=== PATIENT | female | born 1965 | race Caucasian/White ===

== ENCOUNTER 2021-12-27 09:19 | Emergency (ER) | payer BC, SELFPAY ==
[2021-12-27 09:33] VITALS: BP 152/103; PULSE 86; RESP 16; TEMP 36.7; O2SAT 98
--- NOTE | 2021-12-27 09:35 | ED.SKABFB ---
HPI - Skin/Abscess/Foreign Bdy General Chief complaint: Skin/Abscess/Foreign Body Stated complaint: chest abscess Time Seen by Provider: 12/27/21 09:35 Source: patient Mode of arrival: ambulatory Limitations: no limitations History of Present Illness HPI narrative: 56-year-old female presented for complaint of abscess to the right upper chest. She states it started as a pimple about 3 days ago, since then it has spread, become more red, tender, and firm. She denies active drainage. She has applied Prid to the site with dressing and tegaderm, without any drainage. She denies associated nausea, vomiting, fevers or chills. No other locations of abscesses. Denies history of abscesses. MD complaint: rash Related Data Home Medications Medication Instructions Recorded Confirmed paroxetine HCl 20 mg tablet 20 tablet PO DAILY 12/27/21 12/27/21 Allergies Allergy/AdvReac Type Severity Reaction Status Date / Time anesthesia Allergy Other Uncoded 12/27/21 09:32 Review of Systems Review of Systems: CONSTITUTIONAL: Denies body aches, fever, chills, or sweats. CARDIOVASCULAR: Denies chest pain, palpitations, or edema. RESPIRATORY: Denies cough or dyspnea. GASTROINTESTINAL: Denies abdominal pain, nausea, vomiting, or diarrhea. GENITOURINARY: Denies dysuria or hematuria. SKIN: reports abscess MUSCULOSKELETAL: Denies back pain, joint pain, or myalgia. PMFSH Comments At time of signature, I have reviewed and agree with nursing past medical, surgical, social and family history unless otherwise noted. Please see nursing chart for further information. There is no relevant family history pertinent to the presenting complaint Exam Narrative: GENERAL: Well-appearing, well-nourished, and in no acute distress. ENT: Mucous membranes moist. Oropharynx without edema, erythema or lesions. NECK: Supple. No lymphadenopathy CHEST: Clear to auscultation. No respiratory distress. HEART: Regular rate and rhythm. SKIN: Warm, dry. Right upper chest wall abscess, induration of approx 7cm x5cm, area of fluctuance at center without active drainage, tender with palpation NEURO: Alert and oriented x3. PSYCH: Normal mood and affect Course Course Emergency Course: Patient is aware of diagnosis, understands and agrees to treatment plan. Anticipatory guidance given. Patient agrees to follow-up as directed and is aware of reasons to seek care at the emergency department. Portions of this record may have been created with voice recognition software Level of Care: Express Care Visit Vital Signs Vital signs: Vital Signs Temperature 98.0 F 12/27/21 09:33 Pulse Rate 86 12/27/21 09:33 Respiratory Rate 16 12/27/21 09:33 Blood Pressure 152/103 H 12/27/21 09:33 Pulse Oximetry 98 12/27/21 09:33 Oxygen Delivery Room Air 12/27/21 09:33 Temperature 98.0 F 12/27/21 09:33 Pulse Rate 86 12/27/21 09:33 Respiratory Rate 16 12/27/21 09:33 Blood Pressure 152/103 H 12/27/21 09:33 Pulse Oximetry 98 12/27/21 09:33 Oxygen Delivery Room Air 12/27/21 09:33 Reviewed Procedures Abscess I/D chest: Date of Incision: 12/27/21 Side (if applicable): right Sedation/analgesia: none Local Anesthetic: lidocaine 1% and with epi Amount of anesthesia used (mL): 3 Technique: incised with #11 blade and probed loculations Packing used?: plain I&D Results: Pus Abcess I&D Additional Comments: wound cleansed prior to incision, using 11 blade at the center of fluctuant area, large amount of purulent drainage. pt tolerated well. MDM - Skin/Abscess/Foreign Bdy MDM Narrative Medical decision making narrative: Abscess I&D completed, pt advised on abx and supportive treatment. Instructed patient to go to nearest ER immediately for any worsening symptoms including but not limited to: fever, redness, pain, trouble breathing, or any symptoms concerning to the patient. Differential Diagno
[2021-12-27 09:36] VITALS: BP 152/103; PULSE 86; RESP 16; TEMP 36.7; O2SAT 98
== END 2021-12-27 10:20 | disposition home or self-care (01) ==
PROVIDERS: Emergency Provider Nurse Practitioner Family
DX: L02.213 Cutaneous abscess of chest wall (principal)
CPT/HCPCS: 10061; 87070; 87075; 87205; 99213; G0463

== ENCOUNTER 2024-08-25 09:00 | Emergency (ER) | payer OTHER, SELFPAY ==
[2024-08-25] VITALS (13 sets, daily range): BP systolic 127–197; BP diastolic 58–121; PULSE 85–132; RESP 12–23; TEMP 37.2–37.6; O2SAT 97–100
--- NOTE | ~2024-08-25 | US_ITS ---
US abdomen limited INDICATION: Abnormal gallbladder on CT. PROCEDURE: Realtime right upper abdominal ultrasound. COMPARISON: CT dated 08/25/2024 FINDINGS: The pancreas is normal without focal mass or pancreatic ductal dilation. Liver echotexture is normal without focal mass or intrahepatic biliary dilatation. There is normal directional flow i n the portal vein. There are multiple gallstones. No gallbladder wall thickening or pericholecystic fluid. Common bile duct measures 4 mm. No sonographic Baum's sign. IMPRESSION: 1: Cholelithiasis. Reviewed, dictated and finalized at location B. UMER RELATIONS COMPLAINT CLERK IMPRESSION: 1: Cholelithiasis.
--- NOTE | ~2024-08-25 | XR_ITS ---
Clinical Indication: Altered mental status AP and lateral views of the chest: Comparison: 12/31/2018 Findings: There is mild central congestive change, without evidence of focal consolidation or pleural effusion. Cardiomediastinal silhouette is within normal limits. Bones and soft tissues are unremark able. Impression: Mild central pulmonary venous congestive change. Reviewed, dictated and finalized at location . D SALES ASSOCIATE Impression: Mild central pulmonary venous congestive change.
--- NOTE | ~2024-08-25 | CT_ITS ---
Non-contrast Head CT History: Altered mental status Technique: Axial non-contrast imaging of the brain was performed. Dose reduction technique was used on this scan by utilizing automated exposure control and iterative reconstruction technique. The dose -length product (DLP) was 1059.33 mGy-cm. Findings: There is no evidence of intracranial hemorrhage, mass lesion, or acute infarct. Brain par enchyma appears normal. The ventricles and subarachnoid spaces are normal in size. The calvarium ap pears normal. Left sphenoid sinus disease present. The remaining visualized paranasal sinuses and mas toid air cells are clear. Impression: No intracranial abnormality seen. Left sphenoid sinus disease. Reviewed, dictated and finalized at location . ONAL EHS MANAGER Impression: No intracranial abnormality seen. Left sphenoid sinus disease.
--- NOTE | ~2024-08-25 | XR_ITS ---
EXAMINATION: XR knee RT min 4V DATE: 08/25/2024 10:48 INDICATION: Erythema and sepsis post recent right knee arthroplasty. TECHNIQUE: AP, crosstable lateral and 2 oblique views of the right knee were obtained. COMPARISON: None. FINDINGS: Right total knee arthroplasty without patellar resurfacing which appears well seated in shanell r-anatomic alignment. No fracture. Small amount of likely residual postoperative intramedullary gas i n the distal femur and proximal tibia. Sagittal oriented anterior skin fanny with underlying soft t issue swelling. Moderate-sized right knee joint effusion. IMPRESSION: 1. Changes consistent with recent right total knee arthroplasty without other acute osseous abnormali ty. 2. Moderate-sized right knee joint effusion. Reviewed, dictated and finalized at location A. TACKER IMPRESSION: 1. Changes consistent with recent right total knee arthroplasty without other a cute osseous abnormality. 2. Moderate-sized right knee joint effusion.
--- NOTE | ~2024-08-25 | CT_ITS ---
EXAMINATION: CT chest abdomen pelvis w con DATE: 08/25/2024 12:06 INDICATION: Sepsis. TECHNIQUE: Computed tomography (CT) of the chest, abdomen, and pelvis was performed with 100 mL Omnip aque-350 intravenous contrast. Automated exposure control and iterative reconstruction technique were employed. The dose-length product was 1279.29 mGy-cm. COMPARISON: None FINDINGS: CHEST CT: Mosaic attenuation in the dependent lungs with mild volume loss in the bilateral lower lobes consiste nt with atelectasis likely related to incomplete inspiratory effort with subsegmental regions of more lucent air trapping related to small airway disease. No pneumonia, pulmonary edema or pleural effusi on. Heart size is normal. No pericardial effusion. Thoracic aorta is normal in caliber with no dissec tion. No pathologically enlarged thoracic lymphadenopathy. Moderate-sized sliding-type hiatal hernia. Mild lower thoracic spondylosis. ABDOMEN/PELVIS CT: Gallbladder is distended to 5.2 cm but without evident wall thickening or pericholecystic inflammator y stranding to suggest acute cholecystitis. Liver, spleen, pancreas, bilateral adrenal glands and lef t kidney are normal. 8 mm cyst at the lower pole of the right kidney. Adjacent inflammatory stranding to suggest diverticulitis. No bowel obstruction. The appendix is not visualized. No pericecal inflam matory change to suggest acute appendicitis. Arriola catheter within the decompressed bladder. Antevert ed uterus and bilateral ovaries are unremarkable. No free intraperitoneal gas or fluid. No pathologic ally enlarged abdominal or pelvic lymphadenopathy. Very small fat-containing umbilical hernia. Modera te severe disc height loss at L5-S1. Otherwise mild lumbar spondylosis. IMPRESSION: 1. No acute cardiopulmonary disease. 2. Gallbladder is distended to 5.2 cm with suggestion of sludge and sludge or gallstones but without evident wall thickening or pericholecystic inflammatory stranding to more specifically suggest acute cholecystitis. Correlate for Baum sign and could consider further evaluation with right upper quadr ant ultrasound or HIDA scan. 3. Moderate-sized sliding-type hiatal hernia. 4. Diverticulosis. Reviewed, dictated and finalized at location A. IFIED PERFORMANCE TECHNOLOGIST IMPRESSION: 1. No acute cardiopulmonary disease. 2. Gallbladder is distended to 5.2 cm with suggestion of sludge and sludge or g allstones but without evident wall thickening or pericholecystic inflammatory s tranding to more specifically suggest acute cholecystitis. Correlate for Baum sign and could consider further evaluation with right upper quadrant ultrasoun d or HIDA scan. 3. Moderate-sized sliding-type hiatal hernia. 4. Diverticulosis.
--- NOTE | 2024-08-25 09:11 | ECG_ITS ---
Test Date: 2024-08-25 09:21:38 Measurements Intervals [place] Rate: 117 P: 14 MS: 112 QRS: -23 QRSD: 88 T: 48 QT: 316 QTc: 442 Interpretive Statements SINUS TACHYCARDIA LEFT VENTRICULAR HYPERTROPHY MINIMAL Q WAVES- HIGH LATERAL LEADS BASELINE WANDER- V6 ABNORMAL ECG No previous ECG available for comparison Electronically Signed On 08-25-2024 09:48:11 [employer] by Rogers Grady D.O.
[2024-08-25 09:27] LABS: Basophils Absolute Auto 0.1 K/mm3 (0.0-0.1); Eosinophils Absolute Auto 0.1 K/mm3 (0-0.3); Eosinophils Percent Auto 1.3 % (0-4.4); Hematocrit 41.2 % (37.0-47.0); Hemoglobin 13.5 g/dL (12.0-15.0); Immature Granulocyte Absolute 0.02 K/mm3 (0.00-0.031); Immature Granulocyte Percent A 0.2 % (0-0.5); Lymphocytes Absolute Auto 1.02 K/mm3 (0.9-3.2); Lymphocytes Percent Auto 12.2 % (18.3-44.2); Mean Corpuscular HGB Conc 32.8 g/dl (32-36); Mean Corpuscular Hemoglobin 28.8 pg (26-34); Mean Platelet Volume 8.8 fl (7.4-10.4); Monocytes Absolute Auto 0.6 K/mm3 (0.1-0.6); Monocytes Percent Auto 6.7 % (2.6-8.5); Neutrophils Absolute Auto 6.6 K/mm3 (1.3-6.7); Neutrophils Percent Auto 78.6 % (45.5-73.1); Platelet Count Result 513 k/mm3 (150-375); Red Blood Count 4.68 M/mm3 (4.2-5.4); Red Cell Distribution Width 13.7 % (11.5-14.5); White Blood Count 8.4 K/mm3 (4.5-10.0)
--- NOTE | 2024-08-25 09:30 | ED_ITS ---
HPI - General Adult General Chief complaint: Recheck/Abnormal Lab/Rx <MACKENZIE Holcomb Last Filed: 08/25/24 19:39> Stated complaint: post surgery issues <MACKENZIE Holcomb Last Filed: 08/25/24 19:39> Time Seen by Provider: 08/25/24 09:01 <MACKENZIE Holcomb Last Filed: 08/25/24 19:39> Source: patient and family <MACKENZIE Holcomb Last Filed: 08/25/24 19:39> Mode of arrival: EMS <MACKENZIE Holcomb Last Filed: 08/25/24 19:39> Limitations: clinical condition <MACKENZIE Hlocomb Last Filed: 08/25/24 19:39> History of Present Illness HPI narrative: Patient is a 59-year-old female who presents the ED via EMS with report of altered mental status. at bedside assisted in providing information. Reports patient underwent right knee replacement at [facility] on Saturday. Performed by Dr. Abhinav Polo. States patient has been increasingly altered and confused since Saturday night. Reports hallucinations. Reports R knee has been warm and painful. Reports decreased urine output since midnight. reports he did count her oxycodone and she has not been taking more than prescribed. Last dose was at 4:00 a.m. this morning. denies N/V. < MACKENZIE Holcomb Last Filed: 08/25/24 19:39> Related Data Home medications: Home Medications ?Medication ?Instructions ?Recorded ?Confirmed ?Last Taken ?Type paroxetine HCl 20 mg tablet 20 tablet PO DAILY 12/27/21 12/27/21 Unknown History <MACKENZIE Holcomb Last Filed: 08/25/24 19:39> Allergies/adverse reactions: Allergies Allergy/AdvReac Type Severity Reaction Status Date / Time anesthesia Allergy Other Uncoded 08/25/24 09:16 <MACKENZIE Holcomb Last Filed: 08/25/24 19:39> Review of Systems 2 Review of Systems: All systems reviewed & are unremarkable except as noted in HPI. <Jeannie Delvalle PA-C - Last Filed: 08/25/24 19:39> All systems reviewed & are unremarkable except as noted in HPI and below < Jeannie Delvalle PA-C - Last Filed: 08/25/24 19:39> [facility] Surgical History Surgical History: Surgical History Status post right knee replacement <Jeannie Delvalle PA-C - Last Filed: 08/25/24 19:39> Exam 2 Narrative: GENERAL: Mildly ill appearing, obese with BMI of 34.8, borderline agitated. HEAD: Normocephalic, atraumatic. ENT: MMs are severely dry. Dried crusted material around lips. RESPIRATORY: Airway patent, respirations nonlabored but tachypneic. Clear to auscultation bilaterally, no rales, rhonchi, wheezing. CARDIOVASCULAR: Tachycardic with regular rhythm without murmurs, rubs, or gallops. ABDOMINAL: Abdomen is somewhat distended, difficult to determine tenderness d/t AMS. Normoactive BS. MUSCULOSKELETAL: No gross deformities. Limited range of motion of right lower extremity due to pain/surgery. Diffuse swelling throughout R knee with ecchymosis present, extending down RLE, in various stages of healing. Mild warmth and erythema present throughout R knee. Midline bandage in place w/o evidence of drainage. SKIN: Warm, dry, normal color. NEURO: Alert, answers some questions but very confused. Repeatedly stating Oh here we go again, is it supposed to hurt so bad, I will get over this bed railing. Not appropriate to conversation. Follows some commands. No ataxic movements. Able to move all extremities. No appreciable focal deficits. PSYCHIATRIC: Agitated, confused. <Jeannie Delvalle PA-C - Last Filed: 08/25/24 19:39> Course SUSTAINABILITY EXECUTIVE DIRECTOR/PA Physician Supervision I agree with midlevel documentation; I performed the medical decision making component of this evaluation. 59-year-old female with recent orthopedic surgery presents here with altered mental status, essentially benign workup otherwise here, will be transferred to the hospital she had her recent surgery at. Currently improved mental status. < Jocelyn Taylor MD - Last Filed: 08/25/24 14:42> Vital Signs Vital signs: Vital Signs Temperature 99.6 F 08/25/24 09:11 Pulse Rate 128 H 08/25/24 09:11 Respiratory Rate 18 08/25/24 09:11 Blood Pressure 197/96 H 08/25/24 09:11 Pulse Oximetry 98 08/25/24 09:11 Oxygen Delivery Room Air 08/25/24 09:11 Temperature 99.3 F 08/25/24 14:31 Pulse Rate 87 08/25/24 14:31 Respiratory Rate 20 08/25/24 14:31 Blood Pressure 130/72 08/25/24 14:31 Pulse Oximetry 99 08/25/24 14:31 Oxygen Delivery Room Air 08/25/24 09:11 <Jeannie Delvalle PA-C - Last Filed: 08/25/24 19:39> Vital Signs Temperature 99.6 F 08/25/24 09:11 Pulse Rate 128 H 08/25/24 09:11 Respiratory Rate 18 08/25/24 09:11 Blood Pressure 197/96 H 08/25/24 09:11 Pulse Oximetry 98 08/25/24 09:11 Oxygen Delivery Room Air 08/25/24 09:11 Temperature 99.3 F 08/25/24 14:31 Pulse Rate 87 08/25/24 14:31 Respiratory Rate 20 08/25/24 14:31 Blood Pressure 130/72 08/25/24 14:31 Pulse Oximetry 99 08/25/24 14:31 Oxygen Delivery Room Air 08/25/24 09:11 <Jocelyn Taylor MD - Last Filed: 08/25/24 14:42> Medical Decision Making MDM Narrative Medical decision making narrative: Patient presented to ED status post recent right knee replacement on Saturday, altered mental status over the past couple of days. Patient hypertensive, tachycardic, borderline febrile upon arrival. Able to answer some orientation questions, but is definitely confused, repeating phrases over and over. No appreciable focal neurologic deficits on exam. Right knee is diffusely swollen with ecchymosis, some warmth and erythema. No drainage. Sepsis workup was initiated. 30cc/kg fluid bolus ordered. There was report of decreased urine output since around midnight this morning. Bladder scan upon arrival revealed greater than 600 mL of urine. When asked if patient needed to urinate, she stated she was trying as hard as she could. Will place Arriola catheter. EKG with sinus tachycardia, nonspecific ST changes. CBC without leukocytosis. White blood cell count is 8.4. H and H is stable. Platelets are 513. CMP with anion gap of 17. Normal bicarb. Blood glucose within normal range. Stable kidney function. Lactic acid is elevated to 2.2. Fluids are ongoing. Mild elevation of total bilirubin to 1.5. Otherwise normal LFTs. No records to compare to. No focal right upper quadrant tenderness on exam. Inflammatory markers are mildly elevated. CRP is 5. ESR 49. Procal 0.1. CK is mildly elevated to 326. Fluids are ongoing. UA with 3+ ketones, but does not appear infectious. Viral swabs are negative. CT brain unremarkable. CXR with mild pulm congestive changes. Patient does not appear fluid overloaded. BNP WNL. XR R knee showing post operative changes, no acute osseous abnormality, moderate size right knee joint effusion. CT chest/abd/pelvis with possible GB etiology, otherwise non-reevealing. Patient w/o any focal RUQ tenderness on exam. RUQ US with cholelithiasis, no evidence of cholecystitis. Low suspicion for this. Unclear etiology of AMS... polypharmacy vs sepsis vs septic joint vs post operative infection vs acute urinary retention vs severe dehydration vs neurologic etiology. Patient given 3L of fluid in the ED. On reeval, she is more calmer, alert, appropriate, able to converse. Much more to baseline. Patient will be admitted for further evaluation of AMS, but will discuss with [facility] given recent hospitalization/surgery there. Discussed case with Dr. Davis, hospitalist @ [facility], accepted patient for admission/transfer. Patient and family are in agreement with plan and transfer. Awaiting bed placement. Patient received bed. Transport being arranged. <Jeannie Delvalle PA-C - Last Filed: 08/25/24 19:39> Medical Records Medical records reviewed: Yes I reviewed the external patient's medical records. <Jeannie Delvalle PA-C - Last Filed: 08/25/24 19:39> Vital Signs Vital Signs: Vital Signs Temperature 99.6 F 08/25/24 09:11 Pulse Rate 128 H 08/25/24 09:11 Respiratory Rate 18 08/25/24 09:11 Blood Pressure 197/96 H 08/25/24 09:11 Pulse Oximetry 98 08/25/24 09:11 Oxygen Delivery Room Air 08/25/24 09:11 Temperature 99.3 F 08/25/24 14:31 Pulse Rate 87 08/25/24 14:31 Respiratory Rate 20 08/25/24 14:31 Blood Pressure 130/72 08/25/24 14:31 Pulse Oximetry 99 08/25/24 14:31 Oxygen Delivery Room Air 08/25/24 09:11 <Jeannie Delvalle PA-C - Last Filed: 08/25/24 19:39> Vital Signs Temperature 99.6 F 08/25/24 09:11 Pulse Rate 128 H 08/25/24 09:11 Respiratory Rate 18 08/25/24 09:11 Blood Pressure 197/96 H 08/25/24 09:11 Pulse Oximetry 98 08/25/24 09:11 Oxygen Delivery Room Air 08/25/24 09:11 Temperature 99.3 F 08/25/24 14:31 Pulse Rate 87 08/25/24 14:31 Respiratory Rate 20 08/25/24 14:31 Blood Pressure 130/72 08/25/24 14:31 Pulse Oximetry 99 08/25/24 14:31 Oxygen Delivery Room Air 08/25/24 09:11 <Jocelyn Taylor MD - Last Filed: 08/25/24 14:42> Lab Data Lab results reviewed: Yes I reviewed the patient's lab results. <Jeannie Delvalle PA-C - Last Filed: 08/25/24 19:39> Result diagrams: 08/25/24 09:22 08/25/24 09:22 <MACKENZIE Holcomb Last Filed: 08/25/24 19:39> Labs: Lab Results 08/25/24 08/25/24 08/25/24 Range/Units 09:21 09:22 09:25 WBC 8.4 (4.5-10.0) K/mm3 RBC 4.68 (4.2-5.4) M/mm3 Hgb 13.5 (12.0-15.0) g/dL Hct 41.2 (37.0-47.0) % MCV 88.0 (80-100) fl MCH 28.8 (26-34) pg MCHC 32.8 (32-36) g/dl RDW 13.7 (11.5-14.5) % Plt Count 513 H (150-375) k/mm3 MPV 8.8 (7.4-10.4) fl Immature Gran % (Auto) 0.2 (0-0.5) % Neut % (Auto) 78.6 H (45.5-73.1) % Lymph % (Auto) 12.2 L (18.3-44.2) % [place] % (Auto) 6.7 (2.6-8.5) % Eos % (Auto) 1.3 (0-4.4) % Baso % (Auto) 1.0 (0.2-1.2) % Lymph # (Auto) 1.02 (0.9-3.2) K/mm3 [place] # (Auto) 0.6 (0.1-0.6) K/mm3 Eos # (Auto) 0.1 (0-0.3) K/mm3 Baso # (Auto) 0.1 (0.0-0.1) K/mm3 Abs Immat Gran (auto) 0.02 (0.00-0.031) K/mm3 Absolute Neuts (auto) 6.6 (1.3-6.7) K/mm3 Absolute Nucleated RBC 0.000 (0.0-0.012) K/mm3 Nucleated RBC % 0.0 (0.0-0.2) % ESR (0-20) mm/hr PT 12.9 (11.1-14.7) Seconds INR 0.9 APTT 23.2 (22.3-36.8) Seconds Sodium 142 (137-145) mmol/L Potassium 3.5 (3.4-5.0) mmol/L Chloride 100 (98-107) mmol/L Carbon Dioxide 25 (22-30) mmol/L Anion Gap 17 H (4-12) mmol/L BUN 10 (7-17) mg/dL Creatinine 0.51 L (0.7-1.0) mg/dL Estim Creat Clear Calc 118 ml/min Estimated GFR > 60 (59 - ) Glucose 122 H (65-110) mg/dL Lactic Acid 2.2 H (0.7-2.0) mmol/L Calcium 9.8 (8.4-10.2) mg/dL Total Bilirubin 1.5 H (0.2-1.3) mg/dL AST 28 (14-36) U/L ALT 22 (6-35) U/L Alkaline Phosphatase 95 (38-126) U/L Total Creatine Kinase 326 H (30-135) U/L C-Reactive Protein 5.0 H (<1.0) mg/dL NT-Pro-B Natriuret Pep 88 (19.9-100) pg/mL Total Protein 8.0 (6.3-8.2) g/dL Albumin 4.3 (3.5-5.1) g/dL Procalcitonin 0.1 ng/mL Urine Color (Yellow) Urine Appearance (Clear) Urine pH (5.0-9.0) Ur Specific [place] (1.001-1.035) Urine Protein (Negative) mg/dL Urine Glucose (UA) (Negative) mg/dL Urine Ketones (Negative) mg/dL Ur Blood (Man) (Negative) Urine Nitrate (Negative) Urine Bilirubin (Negative) Urine Urobilinogen (<2.0) mg/dL Leukocyte Esterase Rfl (Negative) ARYA/UL POC Urine HCG, Qual (Negative) Influenza A (RT-PCR) (Negative) Influenza B (RT-PCR) (Negative) RSV (RT-PCR) (Negative) SARS-CoV-2 RNA (RT-PCR) (Negative) 08/25/24 08/25/24 08/25/24 Range/Units 09:49 09:51 11:23 WBC (4.5-10.0) K/mm3 RBC (4.2-5.4) M/mm3 Hgb (12.0-15.0) g/dL Hct (37.0-47.0) % MCV (80-100) fl MCH (26-34) pg MCHC (32-36) g/dl RDW (11.5-14.5) % Plt Count (150-375) k/mm3 MPV (7.4-10.4) fl Immature Gran % (Auto) (0-0.5) % Neut % (Auto) (45.5-73.1) % Lymph % (Auto) (18.3-44.2) % [place] % (Auto) (2.6-8.5) % Eos % (Auto) (0-4.4) % Baso % (Auto) (0.2-1.2) % Lymph # (Auto) (0.9-3.2) K/mm3 [place] # (Auto) (0.1-0.6) K/mm3 Eos # (Auto) (0-0.3) K/mm3 Baso # (Auto) (0.0-0.1) K/mm3 Abs Immat Gran (auto) (0.00-0.031) K/mm3 Absolute Neuts (auto) (1.3-6.7) K/mm3 Absolute Nucleated RBC (0.0-0.012) K/mm3 Nucleated RBC % (0.0-0.2) % ESR 49 H (0-20) mm/hr PT (11.1-14.7) Seconds INR APTT (22.3-36.8) Seconds Sodium (137-145) mmol/L Potassium (3.4-5.0) mmol/L Chloride (98-107) mmol/L Carbon Dioxide (22-30) mmol/L Anion Gap (4-12) mmol/L BUN (7-17) mg/dL Creatinine (0.7-1.0) mg/dL Estim Creat Clear Calc ml/min Estimated GFR (59 - ) Glucose (65-110) mg/dL Lactic Acid (0.7-2.0) mmol/L Calcium (8.4-10.2) mg/dL Total Bilirubin (0.2-1.3) mg/dL AST (14-36) U/L ALT (6-35) U/L Alkaline Phosphatase (38-126) U/L Total Creatine Kinase (30-135) U/L C-Reactive Protein (<1.0) mg/dL NT-Pro-B Natriuret Pep (19.9-100) pg/mL Total Protein (6.3-8.2) g/dL Albumin (3.5-5.1) g/dL Procalcitonin ng/mL Urine Color Yellow (Yellow) Urine Appearance Clear (Clear) Urine pH 6.5 (5.0-9.0) Ur Specific [place] 1.013 (1.001-1.035) Urine Protein Negative (Negative) mg/dL Urine Glucose (UA) Negative (Negative) mg/dL Urine Ketones 3+ H (Negative) mg/dL Ur Blood (Man) Negative (Negative) Urine Nitrate Negative (Negative) Urine Bilirubin Negative (Negative) Urine Urobilinogen 1.0 (<2.0) mg/dL Leukocyte Esterase Rfl Negative (Negative) ARYA/UL POC Urine HCG, Qual Negative (Negative) Influenza A (RT-PCR) Negative (Negative) Influenza B (RT-PCR) Negative (Negative) RSV (RT-PCR) Negative (Negative) SARS-CoV-2 RNA (RT-PCR) Negative (Negative) 08/25/24 Range/Units 13:12 WBC (4.5-10.0) K/mm3 RBC (4.2-5.4) M/mm3 Hgb (12.0-15.0) g/dL Hct (37.0-47.0) % MCV (80-100) fl MCH (26-34) pg MCHC (32-36) g/dl RDW (11.5-14.5) % Plt Count (150-375) k/mm3 MPV (7.4-10.4) fl Immature Gran % (Auto) (0-0.5) % Neut % (Auto) (45.5-73.1) % Lymph % (Auto) (18.3-44.2) % [place] % (Auto) (2.6-8.5) % Eos % (Auto) (0-4.4) % Baso % (Auto) (0.2-1.2) % Lymph # (Auto) (0.9-3.2) K/mm3 [place] # (Auto) (0.1-0.6) K/mm3 Eos # (Auto) (0-0.3) K/mm3 Baso # (Auto) (0.0-0.1) K/mm3 Abs Immat Gran (auto) (0.00-0.031) K/mm3 Absolute Neuts (auto) (1.3-6.7) K/mm3 Absolute Nucleated RBC (0.0-0.012) K/mm3 Nucleated RBC % (0.0-0.2) % ESR (0-20) mm/hr PT (11.1-14.7) Seconds INR APTT (22.3-36.8) Seconds Sodium (137-145) mmol/L Potassium (3.4-5.0) mmol/L Chloride (98-107) mmol/L Carbon Dioxide (22-30) mmol/L Anion Gap (4-12) mmol/L BUN (7-17) mg/dL Creatinine (0.7-1.0) mg/dL Estim Creat Clear Calc ml/min Estimated GFR (59 - ) Glucose (65-110) mg/dL Lactic Acid 0.9 (0.7-2.0) mmol/L Calcium (8.4-10.2) mg/dL Total Bilirubin (0.2-1.3) mg/dL AST (14-36) U/L ALT (6-35) U/L Alkaline Phosphatase (38-126) U/L Total Creatine Kinase (30-135) U/L C-Reactive Protein (<1.0) mg/dL NT-Pro-B Natriuret Pep (19.9-100) pg/mL Total Protein (6.3-8.2) g/dL Albumin (3.5-5.1) g/dL Procalcitonin ng/mL Urine Color (Yellow) Urine Appearance (Clear) Urine pH (5.0-9.0) Ur Specific [place] (1.001-1.035) Urine Protein (Negative) mg/dL Urine Glucose (UA) (Negative) mg/dL Urine Ketones (Negative) mg/dL Ur Blood (Man) (Negative) Urine Nitrate (Negative) Urine Bilirubin (Negative) Urine Urobilinogen (<2.0) mg/dL Leukocyte Esterase Rfl (Negative) ARYA/UL POC Urine HCG, Qual (Negative) Influenza A (RT-PCR) (Negative) Influenza B (RT-PCR) (Negative) RSV (RT-PCR) (Negative) SARS-CoV-2 RNA (RT-PCR) (Negative) <Jeannie Delvalle PA-C - Last Filed: 08/25/24 19:39> Lab Results 08/25/24 08/25/24 08/25/24 Range/Units 09:21 09:22 09:25 WBC 8.4 (4.5-10.0) K/mm3 RBC 4.68 (4.2-5.4) M/mm3 Hgb 13.5 (12.0-15.0) g/dL Hct 41.2 (37.0-47.0) % MCV 88.0 (80-100) fl MCH 28.8 (26-34) pg MCHC 32.8 (32-36) g/dl RDW 13.7 (11.5-14.5) % Plt Count 513 H (150-375) k/mm3 MPV 8.8 (7.4-10.4) fl Immature Gran % (Auto) 0.2 (0-0.5) % Neut % (Auto) 78.6 H (45.5-73.1) % Lymph % (Auto) 12.2 L (18.3-44.2) % [place] % (Auto) 6.7 (2.6-8.5) % Eos % (Auto) 1.3 (0-4.4) % Baso % (Auto) 1.0 (0.2-1.2) % Lymph # (Auto) 1.02 (0.9-3.2) K/mm3 [place] # (Auto) 0.6 (0.1-0.6) K/mm3 Eos # (Auto) 0.1 (0-0.3) K/mm3 Baso # (Auto) 0.1 (0.0-0.1) K/mm3 Abs Immat Gran (auto) 0.02 (0.00-0.031) K/mm3 Absolute Neuts (auto) 6.6 (1.3-6.7) K/mm3 Absolute Nucleated RBC 0.000 (0.0-0.012) K/mm3 Nucleated RBC % 0.0 (0.0-0.2) % ESR (0-20) mm/hr PT 12.9 (11.1-14.7) Seconds INR 0.9 APTT 23.2 (22.3-36.8) Seconds Sodium 142 (137-145) mmol/L Potassium 3.5 (3.4-5.0) mmol/L Chloride 100 (98-107) mmol/L Carbon Dioxide 25 (22-30) mmol/L Anion Gap 17 H (4-12) mmol/L BUN 10 (7-17) mg/dL Creatinine 0.51 L (0.7-1.0) mg/dL Estim Creat Clear Calc 118 ml/min Estimated GFR > 60 (59 - ) Glucose 122 H (65-110) mg/dL Lactic Acid 2.2 H (0.7-2.0) mmol/L Calcium 9.8 (8.4-10.2) mg/dL Total Bilirubin 1.5 H (0.2-1.3) mg/dL AST 28 (14-36) U/L ALT 22 (6-35) U/L Alkaline Phosphatase 95 (38-126) U/L Total Creatine Kinase 326 H (30-135) U/L C-Reactive Protein 5.0 H (<1.0) mg/dL NT-Pro-B Natriuret Pep 88 (19.9-100) pg/mL Total Protein 8.0 (6.3-8.2) g/dL Albumin 4.3 (3.5-5.1) g/dL Procalcitonin 0.1 ng/mL Urine Color (Yellow) Urine Appearance (Clear) Urine pH (5.0-9.0) Ur Specific [place] (1.001-1.035) Urine Protein (Negative) mg/dL Urine Glucose (UA) (Negative) mg/dL Urine Ketones (Negative) mg/dL Ur Blood (Man) (Negative) Urine Nitrate (Negative) Urine Bilirubin (Negative) Urine Urobilinogen (<2.0) mg/dL Leukocyte Esterase Rfl (Negative) ARYA/UL POC Urine HCG, Qual (Negative) Influenza A (RT-PCR) (Negative) Influenza B (RT-PCR) (Negative) RSV (RT-PCR) (Negative) SARS-CoV-2 RNA (RT-PCR) (Negative) 08/25/24 08/25/24 08/25/24 Range/Units 09:49 09:51 11:23 WBC (4.5-10.0) K/mm3 RBC (4.2-5.4) M/mm3 Hgb (12.0-15.0) g/dL Hct (37.0-47.0) % MCV (80-100) fl MCH (26-34) pg MCHC (32-36) g/dl RDW (11.5-14.5) % Plt Count (150-375) k/mm3 MPV (7.4-10.4) fl Immature Gran % (Auto) (0-0.5) % Neut % (Auto) (45.5-73.1) % Lymph % (Auto) (18.3-44.2) % [place] % (Auto) (2.6-8.5) % Eos % (Auto) (0-4.4) % Baso % (Auto) (0.2-1.2) % Lymph # (Auto) (0.9-3.2) K/mm3 [place] # (Auto) (0.1-0.6) K/mm3 Eos # (Auto) (0-0.3) K/mm3 Baso # (Auto) (0.0-0.1) K/mm3 Abs Immat Gran (auto) (0.00-0.031) K/mm3 Absolute Neuts (auto) (1.3-6.7) K/mm3 Absolute Nucleated RBC (0.0-0.012) K/mm3 Nucleated RBC % (0.0-0.2) % ESR 49 H (0-20) mm/hr PT (11.1-14.7) Seconds INR APTT (22.3-36.8) Seconds Sodium (137-145) mmol/L Potassium (3.4-5.0) mmol/L Chloride (98-107) mmol/L Carbon Dioxide (22-30) mmol/L Anion Gap (4-12) mmol/L BUN (7-17) mg/dL Creatinine (0.7-1.0) mg/dL Estim Creat Clear Calc ml/min Estimated GFR (59 - ) Glucose (65-110) mg/dL Lactic Acid (0.7-2.0) mmol/L Calcium (8.4-10.2) mg/dL Total Bilirubin (0.2-1.3) mg/dL AST (14-36) U/L ALT (6-35) U/L Alkaline Phosphatase (38-126) U/L Total Creatine Kinase (30-135) U/L C-Reactive Protein (<1.0) mg/dL NT-Pro-B Natriuret Pep (19.9-100) pg/mL Total Protein (6.3-8.2) g/dL Albumin (3.5-5.1) g/dL Procalcitonin ng/mL Urine Color Yellow (Yellow) Urine Appearance Clear (Clear) Urine pH 6.5 (5.0-9.0) Ur Specific [place] 1.013 (1.001-1.035) Urine Protein Negative (Negative) mg/dL Urine Glucose (UA) Negative (Negative) mg/dL Urine Ketones 3+ H (Negative) mg/dL Ur Blood (Man) Negative (Negative) Urine Nitrate Negative (Negative) Urine Bilirubin Negative (Negative) Urine Urobilinogen 1.0 (<2.0) mg/dL Leukocyte Esterase Rfl Negative (Negative) ARYA/UL POC Urine HCG, Qual Negative (Negative) Influenza A (RT-PCR) Negative (Negative) Influenza B (RT-PCR) Negative (Negative) RSV (RT-PCR) Negative (Negative) SARS-CoV-2 RNA (RT-PCR) Negative (Negative) 08/25/24 Range/Units 13:12 WBC (4.5-10.0) K/mm3 RBC (4.2-5.4) M/mm3 Hgb (12.0-15.0) g/dL Hct (37.0-47.0) % MCV (80-100) fl MCH (26-34) pg MCHC (32-36) g/dl RDW (11.5-14.5) % Plt Count (150-375) k/mm3 MPV (7.4-10.4) fl Immature Gran % (Auto) (0-0.5) % Neut % (Auto) (45.5-73.1) % Lymph % (Auto) (18.3-44.2) % [place] % (Auto) (2.6-8.5) % Eos % (Auto) (0-4.4) % Baso % (Auto) (0.2-1.2) % Lymph # (Auto) (0.9-3.2) K/mm3 [place] # (Auto) (0.1-0.6) K/mm3 Eos # (Auto) (0-0.3) K/mm3 Baso # (Auto) (0.0-0.1) K/mm3 Abs Immat Gran (auto) (0.00-0.031) K/mm3 Absolute Neuts (auto) (1.3-6.7) K/mm3 Absolute Nucleated RBC (0.0-0.012) K/mm3 Nucleated RBC % (0.0-0.2) % ESR (0-20) mm/hr PT (11.1-14.7) Seconds INR APTT (22.3-36.8) Seconds Sodium (137-145) mmol/L Potassium (3.4-5.0) mmol/L Chloride (98-107) mmol/L Carbon Dioxide (22-30) mmol/L Anion Gap (4-12) mmol/L BUN (7-17) mg/dL Creatinine (0.7-1.0) mg/dL Estim Creat Clear Calc ml/min Estimated GFR (59 - ) Glucose (65-110) mg/dL Lactic Acid 0.9 (0.7-2.0) mmol/L Calcium (8.4-10.2) mg/dL Total Bilirubin (0.2-1.3) mg/dL AST (14-36) U/L ALT (6-35) U/L Alkaline Phosphatase (38-126) U/L Total Creatine Kinase (30-135) U/L C-Reactive Protein (<1.0) mg/dL NT-Pro-B Natriuret Pep (19.9-100) pg/mL Total Protein (6.3-8.2) g/dL Albumin (3.5-5.1) g/dL Procalcitonin ng/mL Urine Color (Yellow) Urine Appearance (Clear) Urine pH (5.0-9.0) Ur Specific [place] (1.001-1.035) Urine Protein (Negative) mg/dL Urine Glucose (UA) (Negative) mg/dL Urine Ketones (Negative) mg/dL Ur Blood (Man) (Negative) Urine Nitrate (Negative) Urine Bilirubin (Negative) Urine Urobilinogen (<2.0) mg/dL Leukocyte Esterase Rfl (Negative) ARYA/UL POC Urine HCG, Qual (Negative) Influenza A (RT-PCR) (Negative) Influenza B (RT-PCR) (Negative) RSV (RT-PCR) (Negative) SARS-CoV-2 RNA (RT-PCR) (Negative) <Jocelyn Taylor MD - Last Filed: 08/25/24 14:42> Imaging Data Attestation: I personally reviewed and interpreted this imaging study as follows: < Jeannie Delvalle PA-C - Last Filed: 08/25/24 19:39> Radiologist's impression: ITS Impressions Head CT 08/25/24 10:30 Impression: No intracranial abnormality seen. Left sphenoid sinus disease. Knee X-Ray 08/25/24 10:50 IMPRESSION: 1. Changes consistent with recent right total knee arthroplasty without other acute osseous abnormality. 2. Moderate-sized right knee joint effusion. Chest X-Ray 08/25/24 11:00 Impression: Mild central pulmonary venous congestive change. Chest/Abdomen/Pelvis CT 08/25/24 12:07 IMPRESSION: 1. No acute cardiopulmonary disease. 2. Gallbladder is distended to 5.2 cm with suggestion of sludge and sludge or gallstones but without evident wall thickening or pericholecystic inflammatory stranding to more specifically suggest acute cholecystitis. Correlate for Baum sign and could consider further evaluation with right upper quadrant ultrasound or HIDA scan. 3. Moderate-sized sliding-type hiatal hernia. 4. Diverticulosis. Abdomen Ultrasound 08/25/24 13:11 IMPRESSION: 1: Cholelithiasis. <Jeannie Delvalle PA-C - Last Filed: 08/25/24 19:39> ECG Data EKG #1: Attestation: I personally reviewed and interpreted this ECG as follows: <Jeannie Delvalle PA-C - Last Filed: 08/25/24 19:39> ECG completion date: 08/25/24 <Jeannie Delvalle PA-C - Last Filed: 08/25/24 19:39> ECG completion time: 09:21 <MACKENZIE Holcomb Last Filed: 08/25/24 19:39> EKG Interpretation: tachycardia (117), sinus rhythm, non-specific ST changes, normal QT and other (short CT) <MACKENZIE Holcomb Last Filed: 08/25/24 19:39> Discharge Plan Discharge Clinical Impression: Acute urinary retention, Dehydration, Elevated CK, Status post right knee replacement, Effusion of right knee joint Altered mental status Qualifiers: Altered mental status type: unspecified Qualified Code(s): R41.82 - Altered mental status, unspecified Encephalopathy Qualifiers: Encephalopathy type: unspecified encephalopathy Qualified Code(s): G93.40 - Encephalopathy, unspecified <Jeannie Delvalle PA-C - Last Filed: 08/25/24 19:39> Patient Disposition: Acute Care Hospital <MACKENZIE Holcomb Last Filed: 08/25/24 19:39> Condition: Stable <MACKENZIE Holcomb Last Filed: 08/25/24 19:39> Patient Language: Bulgarian <MACKENZIE Holcomb Last Filed: 08/25/24 19:39> Prescriptions: No Action paroxetine HCl 20 mg tablet 20 tablet PO DAILY doxycycline hyclate 100 mg tablet 100 mg PO BID 7 Days Qty: 14 0RF <Jeannie Delvalle PA-C - Last Filed: 08/25/24 19:39> Follow-up/Referrals: UNKNOWN,DOCTOR [Primary Care Provider] - <MACKENZIE Holcomb Last Filed: 08/25/24 19:39>
[2024-08-25] MEDS: SODIUM CHLORIDE 0.9% IV 1,000 ML 999 ML IV CONT ×3 (09:40→09:41)
[2024-08-25 09:41] LABS: INR 0.9; Prothrombin Time 12.9 Seconds (11.1-14.7)
[2024-08-25] MEDS: LORazepam INJ (*CRX) 2 MG/ML VIAL 0.5 MG IV PUSH (09:41)
[2024-08-25 09:46] LABS: Lactic Acid Reflex 2.2 mmol/L (0.7-2.0)
[2024-08-25] MEDS: ACETAMINOPHEN 500 MG TABLET 1000 MG PO (09:46)
[2024-08-25 09:47] LABS: Alanine Aminotransferase 22 U/L (6-35); Albumin Level 4.3 g/dL (3.5-5.1); Alkaline Phosphatase 95 U/L (38-126); Anion Gap 17 mmol/L (4-12); Aspartate Amino Transferase 28 U/L (14-36); Bilirubin,Total 1.5 mg/dL (0.2-1.3); Blood Urea Nitrogen 10 mg/dL (7-17); Calcium 9.8 mg/dL (8.4-10.2); Carbon Dioxide 25 mmol/L (22-30); Chloride 100 mmol/L (98-107); Estimated CRCL calculation 118 ml/min; Estimated Glomerular Filt Rate > 60; Glucose 122 mg/dL (65-110); Partial Thromboplastin Time 23.2 Seconds (22.3-36.8); Potassium 3.5 mmol/L (3.4-5.0); Sodium 142 mmol/L (137-145)
--- OUTSIDE RECORDS SUMMARY | 2024-08-25 09:50 | XMS_ITS | Referral Summary ---
Author Organization [facility] Address [address] [place] [address] Care Team Providers Care Machine Adjuster Leader Name Role Phone Unavailable Primary Care Provider Unavailabl e Source Comments [facility],non-owned Affiliates and Associated Physician Practices is amultiple site organization consisting of ambulatory clinics and hospital sitesin [place], [place]. This disclosure is being madepursuant to the Care Everywhere program and may not contain all information available regarding this patient. Last updated 18.[facility] [employer] Allergies No known active allergies Social History Tobacco Use Types Packs/Day Years Used Date Smoking Tobacco: Never Assessed Sex and Gender Information Value Date Recorded Sex Assigned at Not on file Gender Identity Not on file Sexual Orientation Not on file Plan of Treatment Not on file Administered Medications
--- OUTSIDE RECORDS SUMMARY | 2024-08-25 09:50 | XMS_ITS | Encounter Summary ---
Author Organization [facility] Address [address] [place] [address] Care Team Providers Care Housing Officer Name Role Phone Qiana Alex DO, Frederick H Primary Care Provider Encounter Details Date Type Department Care Team (Late st Contact Info) Description 11/05/2006 Outpatient Historical [facility] Long Sultana MD [address] [place] [address] Er, Authorized P NO ADDRESS ON FILE Acute Tonsillitis (Primary Dx) Social History Tobacco Use Types Packs/Day Years Used Date Smoking Tobacco: Never Assessed Comments Unknown Sex and Gender Information Value Date Recorded Sex Assigned at Female 07/09/2024 12:10 PM ASH KIER BOILER Legal Sex Female 5:20 AM ASH KIER BOILER Gender Identity Female 07/09/2024 12:10 PM ASH KIER BOILER Sexual Orientation Choose not to disclose 2023 12:10 PM ASH KIER BOILER documented as of this encounter Plan of Treatment Upcoming Encounters Date Type Department Care Team (Late st Contact Info) Description 09/02/2024 1:00 PM ASH KIER BOILER Office Visit [facility] Orthopedic Surgery at the [facility] [address] [place] [address] Abhinav Polo MD [address] [place] [address] 09/24/2024 11:05 AM CDT Procedure visit [facility] Urology at the [facility] [address] [place] [address] Otoniel Cates MD [address] [place], [place] [phone] 04/06/2025 3:00 PM CDT Office Visit [facility] Primary Care [place] [address] [place] [address] Gómez Kiran Jr., DO [address] [place] [address] documented as of this encounter Visit Diagnoses Diagnosis Acute tonsillitis- Primary documented in this encounter Additional Health Concerns Infection Onset Date Last Indicated Resolved Time R/O COVID-19 12/25/2021 12/28/2021 12/28/2021 8:25 PM CDT COVID-19 12/28/2021 12/28/2021 01/27/2022 1:16 AM CDT documented as of this encounter Care Teams Housing Officer Relationship Specialty Start Date End Date Gómez Kiran Jr., DO [address] [place] [address] PCP - General Internal Medicine 05/09/20 documented as of this encounter
--- OUTSIDE RECORDS SUMMARY | 2024-08-25 09:50 | XMS_ITS | Clinical Summary ---
Author Organization [facility] [employer] Address [address] [place] [address] Care Team Providers Care Director Phone Name Role Phone Unavailable Primary Care Provider Unavailabl e Source Comments [facility] [employer],non-owned Affiliates and Associated Physician Practices is amultiple site organization consisting of ambulatory clinics and hospital sitesin [place], [place], [place] and [place]. This disclosure is being madepursuant to the Care Everywhere program and may not contain all information available regarding this patient. Last updated 18.[facility] [employer] Allergies No known active allergies Social History Tobacco Use Types Packs/Day Years Used Date Smoking Tobacco: Never Assessed Sex and Gender Information Value Date Recorded Sex Assigned at Not on file Gender Identity Not on file Sexual Orientation Not on file Plan of Treatment Health Maintenance Due Date Last Done Comments COLOGUARD (AGES 45-75) - COL ON CA SCREENING 1966 COLON MONITORING 1966 COLONOSCOPY - COLON CA SCREENING 1966 CT COLONOGRAPHY - COLON CA SCREENING 1966 Colorectal Cancer Screening 1966 FIT - COLON CA SCREENING 1966 FLEX SIG - COLON CA SCREENING 1966 LIPID TESTING 1966 MAMMOGRAM 1966 PAP SMEAR 1966 HIV SCREENING 1981 HEPATITIS C SCREENING 03/14/1984 DTAP/TDAP/TD VACCINES (1 - Tdap) 1985 HEPATITIS B VACCINE (1 of 3 - 19+ 3-dose series) 1985 PNEUMOCOCCAL VACCINE 50+ (1 of 1 - PCV) 2016 ZOSTER VACCINE (1 of 2) 2016 COVID-19 VACCINE ( - 2023-2 5 season) 2024 INFLUENZA VACCINE (#1) 2024 DEPRESSION SCREENING 07/15/2024 HIB VACCINE Aged Out No longer eligi ble based on patient's age to complete this topic HPV VACCINE Aged Out No longer eligi ble based on patient's age to complete this topic MENINGOCOCCAL (Group B) VACCINE Aged Out No longer eligible based on patient's age to complete this topic MENINGOCOCCAL VACCINE Aged Out No meaghan uma eligible based on patient's age to complete this topic PNEUMOCOCCAL VACCINE Aged Out No long er eligible based on patient's age to complete this topic
--- OUTSIDE RECORDS SUMMARY | 2024-08-25 09:50 | XMS_ITS | Referral Summary ---
Author Organization [facility] Address [address] [place] [address] Care Team Providers Care Land Inspector Name Role Phone Qiana Alex DO, Frederick Hancock Primary Care Pr ovider Immunizations Name Administration Dates Next Due COVID-19 mRNA (PFIZER) 0.3 m L (30 mcg) vaccine (12 years and up) 06/19/2023 Influenza, Quadrivalent, Spl it, Intramuscular 05/03/2014 Influenza, Quadrivalent, Spl it, Preservative Free, Intramuscular 04/14/2016,04/06/2016,04/12/2015 Influenza, Trivalent, IM (MDV) ,05/03/2022,04/14/2021,04/15,04/09/2019,04/15/2018,04/19/2017 ,04/10/2013,05/07/2012,04/22/2012 Moderna Sars-cov-2 Bivalent Vaccine 50 Mcg/0.5 mL (12+ YRS)-Blue/Chapman 05/19/2022 Pfizer SARS-CoV-2 Monovalent Vaccination (12+ Yrs) PURPLE 05/04/2021,07/22/2020,06/30/2020 Tdap 02/08/2010 Social History Tobacco Use Types Packs/Day Years Used Date Smoking Tobacco: Never Assessed Personal Safety Answer Date Recorded Getting School Help Needed Not on file 06/26 Comments Unknown Sex and Gender Information Value Date Recorded Sex Assigned at Not on file Legal Sex Female 1:07 AM PALEOBOTANIST Gender Identity Not on file Sexual Orientation Not on file Plan of Treatment Not on file Care Teams Land Inspector Relationship Specialty Start Date End Date Gómez Kiran Jr., DO [address] [place] [address] PCP - General Internal Medicine 06/26/23
--- OUTSIDE RECORDS SUMMARY | 2024-08-25 09:50 | XMS_ITS | Patient Health Summary ---
Author Organization [facility] Address [address] [place] [address] Care Team Providers Care Event Crew Technician Name Role Phone Unavailable Primary Care Provider Unavailabl e Note from [facility],non-owned Affiliates and Associated Physician Practices is amultiple site organization consisting of ambulatory clinics and hospital sitesin [place], [place], [place] and [place]. This disclosure is being madepursuant to the Care Everywhere program and may not contain all information available regarding this patient. Last updated 18.[facility] [employer] Allergies No known active allergies Social History Tobacco Use Types Packs/Day Years Used Date Smoking Tobacco: Never Assessed Sex and Gender Information Value Date Recorded Sex Assigned at Not on file Gender Identity Not on file Sexual Orientation Not on file Procedures * SKIN TEST PPD - POINT OF CARE(Performed 10/31/2016) Performed for PPD screening test Results * SKIN TEST PPD - POINT OF CARE (10/31/2016) PPD neg Comment:zero mm induration n oted. ROMAN Ham MISCELLANEOUS SAMPLE S / Unknown 10/31/2016 Olimpia Mcnamara DREDGE MASTER-SORTING LIVESTOCK WORKER LAB - POINT OF CA RE ORDERABLES
--- OUTSIDE RECORDS SUMMARY | 2024-08-25 09:50 | XMS_ITS | Encounter Summary ---
Author Organization [facility] Address [address] [place] [address] Care Team Providers Care Brine Process Operator Name Role Phone Qiana AlexDO Frederick H Primary Care Provider Encounter Details Date Type Department Care Team (Late st Contact Info) Description 07/02/2024 Chart Note [facility] Orthopedic Surgery at the [facility] [place] Medicine [address] [address] Abhinav Polo MD [address] [place] [address] Social History Tobacco Use Types Packs/Day Years Used Date Smoking Tobacco: Never Passive Smoke Exposure: Never Smokeless Tobacco: Never Alcohol Use Standard Drinks/Week Comments Yes 2.5 (1 standard drink = 0.6 oz p ure alcohol) weekends Feeling Safe Answer Date Recorded Are you in a relationship wi th someone who hurts you emotionally and/or physically? No 03/10/2024 Comments No Sex and Gender Information Value Date Recorded Sex Assigned at Female 07/09/2024 12:10 PM RISK COMPLIANCE MANAGER Legal Sex Female 5:20 AM RISK COMPLIANCE MANAGER Gender Identity Female 07/09/2024 12:10 PM RISK COMPLIANCE MANAGER Sexual Orientation Choose not to disclose 2023 12:10 PM RISK COMPLIANCE MANAGER Occupation Industry Job Start Date Job End Date Not on file Not on file Not on file Not on file documented as of this encounter Plan of Treatment Upcoming Encounters Date Type Department Care Team (Late st Contact Info) Description 09/02/2024 1:00 PM RISK COMPLIANCE MANAGER Office Visit [facility] Orthopedic Surgery at the [facility] [address] [phone] Abhinav Polo MD [address] [place] [address] 09/24/2024 11:05 AM CDT Procedure visit [facility] Urology at the [facility] [address] [address] Otoniel Cates MD [address] [place], [place] [phone] 04/06/2025 3:00 PM CDT Office Visit [facility] Primary Care [place] [address] [address] Gómez Kiran Jr., DO [address] [place] [address] documented as of this encounter Visit Diagnoses Not on filedocumented in this encounter Care Teams Brine Process Operator Relationship Specialty Start Date End Date Gómez Kiran Jr., DO [address] [place] [address] PCP - General Internal Medicine 05/09/20 documented as of this encounter
--- OUTSIDE RECORDS SUMMARY | 2024-08-25 09:50 | XMS_ITS | Encounter Summary ---
Author Organization [employer] Address [address] [place] [address] Care Team Providers Care Baling Press Operator Name Role Phone Qiana MelissaDO Frederick H Primary Care Provider Encounter Details Date Type Department Care Team (Late st Contact Info) Description 11/12/2006 Outpatient Historical [facility] Internal Medicine Medical [place] [address] [address] [place] [address] Wayne Gardiner MD [address] [place] [address] Social History Tobacco Use Types Packs/Day Years Used Date Smoking Tobacco: Never Assessed Comments Unknown Sex and Gender Information Value Date Recorded Sex Assigned at Female 07/09/2024 12:10 PM BROKERAGE PURCHASE AND SALE CLERK Legal Sex Female 5:20 AM BROKERAGE PURCHASE AND SALE CLERK Gender Identity Female 07/09/2024 12:10 PM BROKERAGE PURCHASE AND SALE CLERK Sexual Orientation Choose not to disclose 2023 12:10 PM BROKERAGE PURCHASE AND SALE CLERK documented as of this encounter Last Filed Vital Signs Vital Sign Reading Time Taken Comments Blood Pressure 130/88 11/12/2006 10:15 AM CDT Pulse 72 11/12/2006 10:15 AM CDT Temperature - - Respiratory Rate 12 11/12/2006 10:15 AM CDT Oxygen Saturation - - Inhaled Oxygen Concentration - - Weight 87.1 kg (192 lb) 11/12/2006 10:15 AM CDT Height 170.2 cm (5' 7 ) 11/12/2006 10:15 AM CDT Body Mass Index 30.07 11/12/2006 10:15 AM CDT documented in this encounter Plan of Treatment Upcoming Encounters Date Type Department Care Team (Late st Contact Info) Description 09/02/2024 1:00 PM BROKERAGE PURCHASE AND SALE CLERK Office Visit [facility] Orthopedic Surgery at the [facility] [address] [place] [address] Abhinav Polo MD [address] [place] [phone] 09/24/2024 11:05 AM CDT Procedure visit [facility] Urology at the [facility] [address] [place] [phone] Otoniel Cates MD [address] [place], [place] [id number] 04/06/2025 3:00 PM CDT Office Visit [facility] Primary Care [place] [address] [place] [address] Gómez Kiran Jr., DO [address] [place] [address] documented as of this encounter Visit Diagnoses Not on filedocumented in this encounter Additional Health Concerns Infection Onset Date Last Indicated Resolved Time R/O COVID-19 12/25/2021 12/28/2021 12/28/2021 8:25 PM CDT COVID-19 12/28/2021 12/28/2021 01/27/2022 1:16 AM CDT documented as of this encounter Care Teams Baling Press Operator Relationship Specialty Start Date End Date Gómez Kiran Jr., DO [address] [place] [address] PCP - General Internal Medicine 05/09/20 documented as of this encounter
--- OUTSIDE RECORDS SUMMARY | 2024-08-25 09:50 | XMS_ITS | Encounter Summary ---
Author Organization [facility] Address [address] [place] [address] Care Team Providers Care Assistant Distribution Manager Name Role Phone Qiana Alex DO, Frederick H Primary Care Provider Encounter Details Date Type Department Care Team (Latest Contact Info) Description 08/26/2006 Outpatient Historical [facility] Jon Goldsmith MD [address] [place] [address] Screening Mammogram for High-Risk Patient (Primary Dx) Social History Tobacco Use Types Packs/Day Years Used Date Smoking Tobacco: Never Assessed Comments Unknown Sex and Gender Information Value Date Recorded Sex Assigned at Female 07/09/2024 12:10 PM LENS INSERTER Legal Sex Female 5:20 AM LENS INSERTER Gender Identity Female 07/09/2024 12:10 PM LENS INSERTER Sexual Orientation Choose not to disclose 2023 12:10 PM LENS INSERTER documented as of this encounter Plan of Treatment Upcoming Encounters Date Type Department Care Team (Late st Contact Info) Description 09/02/2024 1:00 PM LENS INSERTER Office Visit [facility] Orthopedic Surgery at the [facility] Medicine [address] [place] [address] Abhinav Polo MD [address] [place] [address] 09/24/2024 11:05 AM CDT Procedure visit [facility] Urology at the [facility] [address] [place] [address] Otoniel Cates MD [address] [place], [place] [phone] 04/06/2025 3:00 PM CDT Office Visit [facility] Primary Care [place] [address] [place] [address] Gómez Kiran Jr., DO [address] [place] [address] documented as of this encounter Visit Diagnoses Diagnosis Screening mammogram for high-risk patient- Primary documented in this encounter Additional Health Concerns Infection Onset Date Last Indicated Resolved Time R/O COVID-19 12/25/2021 12/28/2021 12/28/2021 8:25 PM CDT COVID-19 12/28/2021 12/28/2021 01/27/2022 1:16 AM CDT documented as of this encounter Care Teams Assistant Distribution Manager Relationship Specialty Start Date End Date Gómez Kiran Jr., DO [address] [place] [address] PCP - General Internal Medicine 05/09/20 documented as of this encounter
--- OUTSIDE RECORDS SUMMARY | 2024-08-25 09:50 | XMS_ITS ---
Author Organization [facility] Address [address] [place] [address] Phone Care Team Providers Care Flap Presser Name Role Phone Qiana Alex DO, Frederick H Primary Care Provider Active Problems Problem Noted Date Diagnosed Date Primary osteoarthritis of right knee 08/19/2024 Chronic pain of right knee 06/16/2024 Esophageal hiatal hernia 05/15/2022 Hepatic steatosis 05/15/2022 Coronary artery calcification 05/15/2022 Pulmonary nodules 05/15/2022 Severe obesity (BMI 35.0-39.9) with comorbidity 04/11/2022 Situational mixed anxiety and depressive disorde r 04/11/2022 Solitary pulmonary nodule 04/11/2022 H/O Recurrent Diverticulitis 08/28/2017 Overview (08/28/2017): 3 flares as of Aug 2017 Degeneration of lumbar or lumbosacral interverte bral disc 07/28/2011 Osteoarthritis of lumbar spine 05/27/2011 Esophageal reflux 11/13/2004 Current Treatment and Therapy Plans No current plan information found. Past Treatment and Therapy Plans No past plan information found. Lifetime Dose Tracking * Chemical Lifetime Dose Automatic Entry Manual Entr y Effective Dose 106.6 mSv 106.6 mSv 0 mSv Total DLP 7,427 DLP 7,427 DLP 0 DLP CTDIvol Max 86.7 mGy 86.7 mGy 0 mGy CTDIvol Min 58 mGy 58 mGy 0 mGy Resolved Problems Problem Noted Date Diagnosed Date Resolved Date Bladder cancer 08/27/2014 11/01/2014 Bladder mass 08/04/2014 11/01/2014 Diverticulitis of colon with perforation 08/03/2014 05/10/2020 Gluteal pain 05/27/2011 09/21/2011 Sacroiliac region sprain and strain 04/24/2011 09/21/2011 Trochanteric bursitis 06/17/20102011 Rotator cuff tendinitis 10/15/2008 03/0 03/2012 Peritonsillar abscess 11/12/20062010 Other acute sinusitis 11/13/20042010 Routine general medical exam ination at a health care facility 11/13/2004 04/23/2011 Screening for lipoid disorders 11/13/2004 04/23/2011 Screening for diabetes mellitus 11/13/2004 04/23/2011 Bladder cancer 02/19/2024 Overview (11/01/2014): s/p TURBT 08/2014 low-grade non-invasive papillary urothelial carcinoma
--- OUTSIDE RECORDS SUMMARY | 2024-08-25 09:50 | XMS_ITS | Encounter Summary ---
Author Organization [facility] Address [address] [place] [address] Care Team Providers Care Compounder Flavorings Name Role Phone Qiana Alex DO, Frederick H Primary Care Provider Encounter Details Date Type Department Care Team (Late st Contact Info) Description 11/11/2006 Orders Only [facility] Internal Medicine Medical [facility] [address] [place] [address] Wayne Gardiner MD [address] [place] [address] Social History Tobacco Use Types Packs/Day Years Used Date Smoking Tobacco: Never Assessed Comments Unknown Sex and Gender Information Value Date Recorded Sex Assigned at Female 07/09/2024 12:10 PM SPRINKLING TRUCK DRIVER Legal Sex Female 5:20 AM SPRINKLING TRUCK DRIVER Gender Identity Female 07/09/2024 12:10 PM SPRINKLING TRUCK DRIVER Sexual Orientation Choose not to disclose 2023 12:10 PM SPRINKLING TRUCK DRIVER documented as of this encounter Progress Notes * Wayne Gardiner MD - 12/04/2007 6:08 PM CDT TIME:09:18 am PATIENT`S HOME PHONE: PATIENT`S WORK PHONE: PATIENT`S INSURANCE: [employer] WHO TOOK THE CALL: Ingrid Damon R GENERAL INFORMATION PATIENT STATUS: Established Patient. LAST VISIT: 11.13.04 ALTERNATIVE PHONE NUMBER: [phone] WHO CALLED: Patient called. CURRENT ALLERGY LIST: ANECTINE PHARMACY NUMBER: [phone] PROBLEMS: pt went to [facility] er on 11/05, she had a sore throat and swollen glands , strep was neg , she was offered steroids but did not take them at the time , however her throat is still sore and glands still swollen , wanting to know if you will prescribe a med SECTION 1: DOCTOR`S RESPONSE: sandsg 11/11/06 at 09:32 am I reviewed ER notes needs appt and can call pred MEDICATIONS: Call in to Pharmacy PREDNISONE ORAL TABLET 20 MG, 2 q day, 10 Dispensed, status: NEW PRESCRIPTION, 11/11/2006. FINAL ACTION: demarcus 11/11/06 at 01:07 pm Spoke with patient 11/11/06 at 01:08 pm. / marti Called pharmacy at 11/11/06 at 01:10 pm. / marti Electronically Signed by: Ingrid Damon on Saturday, November 11, 2006 documented in this encounter Plan of Treatment Upcoming Encounters Date Type Department Care Team (Late st Contact Info) Description 09/02/2024 1:00 PM SPRINKLING TRUCK DRIVER Office Visit [facility] Orthopedic Surgery at the [facility] Medicine [address] [place] [address] Abhinav Polo MD [address] [facility] [address] [place] [address] 09/24/2024 11:05 AM CDT Procedure visit [facility] Urology at the [facility] Medicine [address] [place] [address] Otoniel Cates MD [address] [facility] [address] [place] [address] 04/06/2025 3:00 PM CDT Office Visit [facility] Primary Care [place] [address] [place] [phone] Gómez Kiran Jr., DO [address] [place] [phone] documented as of this encounter Visit Diagnoses Not on filedocumented in this encounter Additional Health Concerns Infection Onset Date Last Indicated Resolved Time R/O COVID-19 12/25/2021 12/28/2021 12/28/2021 8:25 PM CDT COVID-19 12/28/2021 12/28/2021 01/27/2022 1:16 AM CDT documented as of this encounter Care Teams Compounder Flavorings Relationship Specialty Start Date End Date Gómez Kiran Jr., DO [address] [facility] [address] [place] [address] PCP - General Internal Medicine 05/09/20 documented as of this encounter
--- OUTSIDE RECORDS SUMMARY | 2024-08-25 09:50 | XMS_ITS | Encounter Summary ---
Author Organization [employer] Address [address] [place] [address] Care Team Providers Care Rayon Winder Name Role Phone Qiana Alex DO, Frederick H Primary Care Provider Encounter Details Date Type Department Care Team (Late st Contact Info) Description 11/12/2006 Orders Only [facility] Internal Medicine Medical [facility] [address] [place] [address] Wayne Gardiner MD [address] [place] [address] Social History Tobacco Use Types Packs/Day Years Used Date Smoking Tobacco: Never Assessed Comments Unknown Sex and Gender Information Value Date Recorded Sex Assigned at Female 07/09/2024 12:10 PM WORM PACKER Legal Sex Female 5:20 AM WORM PACKER Gender Identity Female 07/09/2024 12:10 PM WORM PACKER Sexual Orientation Choose not to disclose 2023 12:10 PM WORM PACKER documented as of this encounter Progress Notes * Wayne Gardiner MD - 12/04/2007 8:39 AM CDT BLOOD PRESSURE: 130/88 Left Arm Sitting PULSE: 72 Left Radial, Regular RESPIRATIONS: 12 HEIGHT: 5ft7in WEIGHT: 192lbs NURSE NAME: Balbina Cantor A ALLERGIES: Allergies were reviewed. MEDICATIONS: RN/MA reviewed medications. CHIEF COMPLAINT Patient complains of sore throat.x 1 week. was in er last week. strep negative and ct of neck showed swollen lymph glands. HISTORY: HISTORY OF PRESENT ILLNESS: IN ER 11/05 FOR LEFT THROAT PAIN, NO ABX GIVEN. PAIN NO BETTER, SWELLING? BETTER, STILL DIFFICULTY SWALLOWING. NO FEVERS BUT SIGNIFICANT CHILLS AND SWEATS AT NIGHT. PHYSICAL EXAMINATION: CONSTITUTIONAL: GENERAL APPEARANCE: MILDLY DISTRESSED. EARS, NOSE, MOUTH AND THROAT: ORAL: LEFT TONSIL IS MODERATELY ENLARGED, THE LEFT TONSIL IS ERYTHEMATOUS. RESPIRATORY: Clear to auscultation and percussion. Normal respiratory effort. LYMPHATICS: MULTIPLE TENDER, ENLARGED LYMPH NODES NOTED IN THE LEFT ANTERIOR CERVICAL CHAIN. ASSESSMENT/PLAN: 475-PERITONSILLAR ABSCESS ASSESSMENT: REVIEWED CT AND SPOKE WITH ENT OFFICE, THEY WILL SEE HER. MEDICATIONS: AUGMENTIN ORAL TABLET 875-125 MG, 1 Two Times A Day, 20 Dispensed, status: NEW PRESCRIPTION, 11/12/2006. SPECIALTY REFERRAL: ENT (OTOLARYNGOLOGY) RETURN VISIT : Patient is to return on an as needed basis. Electronically Signed by: Wayne Gardiner MD on Sunday, November 12, 2006 documented in this encounter Plan of Treatment Upcoming Encounters Date Type Department Care Team (Late st Contact Info) Description 09/02/2024 1:00 PM WORM PACKER Office Visit [facility] Orthopedic Surgery at the [facility] [address] [place] [address] Abhinav Polo MD [address] [place] [address] 09/24/2024 11:05 AM CDT Procedure visit [facility] Urology at the [facility] [address] [place] [address] Otoniel Cates MD [address] [place] [address] 04/06/2025 3:00 PM CDT Office Visit [facility] Primary Care [place] [address] [place] [address] Gómez Kiran Jr., DO [address] [facility] [address] [place] [address] documented as of this encounter Visit Diagnoses Not on filedocumented in this encounter Additional Health Concerns Infection Onset Date Last Indicated Resolved Time R/O COVID-19 12/25/2021 12/28/2021 12/28/2021 8:25 PM CDT COVID-19 12/28/2021 12/28/2021 01/27/2022 1:16 AM CDT documented as of this encounter Care Teams Rayon Winder Relationship Specialty Start Date End Date Gómez Kiran Jr., DO [address] [facility] [address] [place] [id number] PCP - General Internal Medicine 05/09/20 documented as of this encounter
--- OUTSIDE RECORDS SUMMARY | 2024-08-25 09:50 | XMS_ITS | Encounter Summary ---
Author Organization [facility] Address [address] [place] [address] Care Team Providers Care Parts Designer Name Role Phone Qiana Alex DO, Frederick H Primary Care Provider Encounter Details Date Type Department Care Team (Latest Contact Info) Description 09/17/2006 Outpatient Historical [facility] Jon Goldsmith MD [address] [place] [address] Abnormal Mammogram, Unspecified (Primary Dx) Social History Tobacco Use Types Packs/Day Years Used Date Smoking Tobacco: Never Assessed Comments Unknown Sex and Gender Information Value Date Recorded Sex Assigned at Female 07/09/2024 12:10 PM SECOND GRADE TEACHER Legal Sex Female 5:20 AM SECOND GRADE TEACHER Gender Identity Female 07/09/2024 12:10 PM SECOND GRADE TEACHER Sexual Orientation Choose not to disclose 2023 12:10 PM SECOND GRADE TEACHER documented as of this encounter Plan of Treatment Upcoming Encounters Date Type Department Care Team (Late st Contact Info) Description 09/02/2024 1:00 PM SECOND GRADE TEACHER Office Visit [facility] Orthopedic Surgery at the [facility] Medicine [address] [place] [address] Abhinav Polo MD [address] [place] [address] 09/24/2024 11:05 AM CDT Procedure visit [facility] Urology at the [facility] [address] [place] [address] Otoniel Cates MD [address] [place], [place] [id number] 04/06/2025 3:00 PM CDT Office Visit [facility] Primary Care [place] [address] [place] [address] Gómez Kiran Jr., DO [address] [place] [address] documented as of this encounter Visit Diagnoses Diagnosis Abnormal mammogram, unspecified- Primary documented in this encounter Additional Health Concerns Infection Onset Date Last Indicated Resolved Time R/O COVID-19 12/25/2021 12/28/2021 12/28/2021 8:25 PM CDT COVID-19 12/28/2021 12/28/2021 01/27/2022 1:16 AM CDT documented as of this encounter Care Teams Parts Designer Relationship Specialty Start Date End Date Gómez Kiran Jr., DO [address] [place] [address] PCP - General Internal Medicine 05/09/20 documented as of this encounter
--- OUTSIDE RECORDS SUMMARY | 2024-08-25 09:50 | XMS_ITS | Clinical Summary ---
Author Organization [facility] Address [address] [place] [address] Care Team Providers Care Park Manager Name Role Phone Qiana Alex DO, [...] on file Legal Sex Female 1:07 AM ACCOUNTS RECEIVABLE COORDINATOR Gender Identity Not on file Sexual Orientation Not on file Plan of Treatment Health Maintenance Due Date Last Done Comments Cervical Cancer Screening 1966 Colon Cancer Screening-Colonoscopy 1966 Depression Screening 1966 Hepatitis C Screening 1966 Hepatitis B Screening 1984 Regular Well Visit/Exam 18-64 1984 Zoster Vaccine (1 of 2) 2016 DTaP/Tdap/Td Vaccine (2 - Td or Tdap) 02/09/2020 02/08/2010 Breast Cancer Screening-Mammogram 10/04/2022 10/04/2021, 08/16/2020, 10/21/2018, Additional history exists Covid-19 Vaccine ( season) 2024 06/19/2023, 05/19/2022, 05/04/2021, Additional history exists Influenza Vaccine (#1) 2024 , 05/03/2022, 04/14/2021, Additional history exists Pneumococcal vaccine <65 Aged Out No longer eligible based on patient's age to complete this topic Care Teams Park Manager Relationship Specialty Start Date End Date Gómez Kiran Jr., [address] [facility] [address] [place] [address] PCP - General Internal Medicine 06/26/23
--- OUTSIDE RECORDS SUMMARY | 2024-08-25 09:50 | XMS_ITS | Encounter Summary ---
Author Organization [facility] Address [address] [place] [address] Care Team Providers Care Perforating Machine Operator Name Role Phone Qiana AlexDO Frederick H Primary Care Provider Encounter Details Date Type Department Care Team (Late st Contact Info) Description 06/10/2024 Chart Note [facility] Orthopedic Surgery at the [facility] Medicine [address] [place] [address] Abhinav Polo MD [address] [facility] [address] [place] [address] Social History Tobacco Use Types Packs/Day Years Used Date Smoking Tobacco: Never Smokeless Tobacco: Never Alcohol Use Standard Drinks/Week Comments Yes 2.5 (1 standard drink = 0.6 oz p ure alcohol) weekends Feeling Safe Answer Date Recorded Are you in a relationship wi th someone who hurts you emotionally and/or physically? No 03/10/2024 Comments No Sex and Gender Information Value Date Recorded Sex Assigned at Female 07/09/2024 12:10 PM GROUND INSTRUCTOR BASIC Legal Sex Female 5:20 AM GROUND INSTRUCTOR BASIC Gender Identity Female 07/09/2024 12:10 PM GROUND INSTRUCTOR BASIC Sexual Orientation Choose not to disclose 2023 12:10 PM GROUND INSTRUCTOR BASIC Occupation Industry Job Start Date Job End Date Not on file Not on file Not on file Not on file documented as of this encounter Progress Notes * Yessy Wagner - 06/12/2024 10:39 AM CST Surgery Location & Pending Date: [facility] 07.27.2024 Medical Clearance Sent: not requested per surgeon Cardiac Clearance Sent: not requested per surgeon Pre op labs, EKG, xray: n/a PACE appt made: PACE to call pt to clear CPT: 26429 Surgery Packet Given: Rosemary Comments: ND INSTRUCTOR BASIC documented in this encounter Plan of Treatment Upcoming Encounters Date Type Department Care Team (Late st Contact Info) Description 09/02/2024 1:00 PM GROUND INSTRUCTOR BASIC Office Visit [facility] Orthopedic Surgery at the [facility] [address] [place] [address] Abhinav Polo MD [address] [place] [address] 09/24/2024 11:05 AM CDT Procedure visit [facility] Urology at the [facility] [address] [place] [address] Otoniel Cates MD [address] [place], [place] [id number] 04/06/2025 3:00 PM CDT Office Visit [facility] Primary Care [place] [address] [place] [address] Gómez Kiran Jr., DO [address] [place] [address] documented as of this encounter Visit Diagnoses Not on filedocumented in this encounter Care Teams Perforating Machine Operator Relationship Specialty Start Date End Date Gómez Kiran Jr., DO [address] [place] [address] PCP - General Internal Medicine 05/09/20 documented as of this encounter
--- OUTSIDE RECORDS SUMMARY | 2024-08-25 09:51 | XMS_ITS | Clinical Summary ---
Author Organization [facility] Address [address] [place] [address] Phone Care Team Providers Care [employer] Name Role Phone Qiana Alex DO, Frederick H Primary Care Provider Allergies Active Allergy Reactions Criticality Noted Date Comments Succinylcholine Chloride Other (See Comments),Muscle Pain High 10/12/2008 Pseudocholinesteras e deficiency Medications omeprazole magnesium (PRILOSEC OTC ORAL) Take by mouth. Active mv-min/iron/folic/ calcium/vitK (WOMEN'S MULTIVITAMIN ORAL) Take by mouth. Active aspirin (ECOTRIN EC) 81 mg Tablet, Delayed Release (E.C.) Take 1 Tablet (81 mg) by mouth every 12 hours. Start first dose evening of discharge from the hospital 60 Tablet 1 08/21/2024 2:49 PM [employer]KE [employer]BOARD NOTCHER 5 Active sennosides-docusat e sodium (SENNA-S) 8.6-50 mg tablet Take 1-2 Tablets by mouth 2 times daily. 100 Tablet 1 08/21/2024 2:49 PM [employer]ARD NOTCHER 5 Active acetaminophen (TYLENOL) 500 mg tablet Take 2 Tablets (1,000 mg) by mouth every 8 hours. 100 Tablet 08/21/2024 2:49 PM [employer]ARD NOTCHER 5 Active celecoxib (CeleBREX) 200 mg capsule Take 1 Capsule (200 mg) by mouth 2 times daily. 60 Capsule 1 08/21/2024 2:49 PM [employer]ARD NOTCHER 5 Active oxyCODONE (ROXICODONE) 5 mg tabletIndications: Primary osteoarthritis of right knee Take 1 Tablet (5 mg) by mouth every 4 hours as needed for Pain. Max Daily Amount: 30 mg 42 Tablet 08/21/2024 2:49 PM SHAKE [employer]ARD NOTCHER 5 Active Active Problems Problem Noted Date Diagnosed Date [...] of lumbar spine 05/27/2011 Esophageal reflux 11/13/2004 Resolved Problems Problem Noted Date Diagnosed Date [...] TURBT 08/2014 low-grade non-invasive papillary urothelial carcinoma Encounters Date Type Department Care Team Description 08/21/2024 Refill [facility] Orthopedic Surgery at the [facility] [address] [place] [address] Sara Gooden PA Primary osteoarthritis of right knee (Primary Dx) 08/20/2024 1:23 PM [employer] NOTCHER Anesthesia Event [facility] Operating Room [address] [place] [address] Darnell Fernandes MD 08/20/2024 11:39 AM [employer]ARD NOTCHER Anesthesia Event [facility] Operating Room [address] [place] [address] Becca Damon MD 08/20/2024 10:54 AM [employer]ARD NOTCHER - 08/20/2024 1:12 PM [employer] Surgery [facility] Operating Room [address] [place] [address] Abhinav Polo MD RIGHT KNEE ARTHROPLASTY TOTAL REPLACEMENT 08/20/2024 8:41 AM [employer]BOARD NOTCHER - 08/21/2024 3:45 PM [employer]ER Hospital Encounter [facility] Orthopaedics [address] [place] [address] Abhinav Polo MD Primary osteoarthritis of right knee Discharge Disposition: Home Health Care [facility] 08/11/2024 External Device Data STL ABSTRACTION Provider, Abstract 08/04/2024 2:30 PM [employer]ARD NOTCHER Video Visit [facility] Primary [address] [place] [address] Gómez Kiran Jr., DO ERRONEOUS ENCOUNTER--DISREGARD (Primary Dx) 07/29/2024 External Device Data Initial Department [address] [place] [address] Dr VASQUEZ: [place] [address] Ortega Mccabe Md 07/28/2024 External Device Data STL ABSTRACTION Provider, Abstract 07/23/2024 Prep for Surgery [facility] Orthopedic Surgery at the [facility] [address] [place] [address] Abhinav Polo MD Primary osteoarthritis of right knee (Primary Dx) 07/22/2024 2:30 PM SHA[employer]ARD NOTCHER Office Visit [facility] Orthopedic Surgery at the [facility] [address] [place] [address] Abhinav Polo MD Chronic pain of right knee (Primary Dx) 07/22/2024 Orders Only [facility] Orthopedic Surgery at the [facility] [address] [place] [address] Abhinav Polo MD 07/22/2024 Chart Note [facility] Orthopedic Surgery at the [facility] [address] [place] [address] Abhinav Polo MD 07/20/2024 Telephone [facility] Care [address] [place] [address] Gómez Kiran Jr., DO Echo results 07/18/2024 1:23 PM [employer]ARD NOTCHER - 07/18/2024 11:59 PM [employer] NOTCHER Hospital Encounter [facility] Non Invasive Cardiology [address] [place] [address] Gómez Kiran Jr., Discharge Disposition: Home or Self Care 07/17/2024 Orders Only [facility] Care [address] [place] [address] [place] [address] Gómez Kiran Jr., DO LVH (left ventricular hypertrophy) (Primary Dx); Heart murmur 07/17/2024 Telephone [facility] Primary Care [address] [place] [address] Gómez Kiran Jr., DO Patient Communication 07/16/2024 2:49 PM SHAKE [employer]BOARD NOTCHER - 07/16/2024 11:59 PM [employer]ARD NOTCHER Hospital Encounter [facility] [address] [place] [address] Abhinav Polo MD Discharge Disposition: Home or Self Care 07/02/2024 12:30 PM [employer]ARD NOTCHER Video Visit [facility] Primary [facility] [address] [place] [address] Yuli Merino ANP Chronic pain of right knee (Primary Dx) 07/02/2024 Chart Note [facility] Orthopedic Surgery at the [facility] [address] [place] [address] Abhinav Polo MD 06/23/2024 External Device Data STL ABSTRACTION Provider, Abstract 06/15/2024 Prep for Surgery [facility] Orthopedic Surgery at the [facility] [address] [place] [address] Abhinav Polo MD Chronic pain of right knee (Primary Dx) 06/12/2024 Orders Only [facility] Orthopedic Surgery at the [facility] [address] [place] [address] Abhinav Polo MD 06/10/2024 9:55 AM [employer] NOTCHER Ancillary Procedure [facility] Orthopedic Surgery at the [facility] [address] [place] [address] Abhinav Polo MD Chronic pain of right knee 06/10/2024 9:45 AM SHA[employer]BOARD NOTCHER Office Visit [facility] Orthopedic Surgery at the [facility] [address] [place] [address] Abhinav Polo MD Chronic pain of right knee (Primary Dx) 06/10/2024 Chart Note [facility] Orthopedic Surgery at the [facility] [address] [place] [address] Abhinav Polo MD from Last 3 Months Immunizations Immunization Administration Dates Next Due (ADACEL/BOOSTRIX)(10 YR UP) TDAP VACCINE, 0.5ML, IM 02/08/2010 (PFIZER)(12 YR UP) COVID-19 VACCINE - EMERGENCY USE AUTHORIZATION, MRNA, [id number](PF) 30 MCG/0.3 ML IM SUSP 07/22/2020,06/30/2020 INFLUENZA VACCINE QUADRIVALE NT 3 YR UP PF IM 04/14/2016,04/06/2016,04/12/2015 Influenza Seasonal Unspecifi ed Formulation IM 04/03/2024,04/05/2023,05/03/2022,2020,04/15/2020,04/09/2019,04/15/2018,1 ,04/10/2013,05/07/2012, 012 Influenza Vaccine Quad Split 3+ Yrs Im 05/03/2014 Family History Medical History Relation Name Comments Breast Cancer Maternal Aunt 1 age of onse t 50's Breast Cancer Maternal Aunt 2 age of onse t 50's Breast Cancer Maternal Aunt 3 age of onse t 50's Stroke Maternal Grandmother Breast Cancer Mother age 52 Breast Cancer Paternal Aunt age of onset 60's Cancer Neg Hx Colon Cancer Neg Hx Ovarian Cancer Neg Hx Relation Name Status Comments Maternal Aunt 1 Alive Maternal Aunt 2 Maternal Aunt 3 Maternal Grandmother Mother Paternal Aunt Social History Tobacco Use Types Packs/Day Years Used Date Smoking Tobacco: Former Cigarettes Passive Smoke Exposure: Never Smokeless Tobacco: Never Tobacco Cessation:Counseling Given: Not Answered Alcohol Use Standard Drinks/Week Comments Yes 2.5 (1 standard drink = 0.6 oz p ure alcohol) weekends Feeling Safe Answer Date Recorded Are you in a relationship wi th someone who hurts you emotionally and/or physically? No 08/20/2024 Food Insecurity Answer Date Recorded Social/Environmental Concerns No concerns Transportation Needs Answer Date Record ed Social/Environmental Concerns No concerns Housing Stability Answer Date Recorded Social/Environmental Concerns No concerns Utility Needs Answer Date Recorded Social/Environmental Concerns No concerns Comments No Sex and Gender Information Value Date Recorded Sex Assigned at Female 07/09/2024 12:10 PM [employer]CHER Legal Sex Female 5:20 AM SHAKE [employer]ARD NOTCHER Gender Identity Female 07/09/2024 12:10 PM [employer] NOTCHER Sexual Orientation Choose not to disclose 2023 12:10 PM SHAKE [employer]ARD NOTCHER Occupation Industry Job Start Date Job End Date Not on file Not on file Not on file Not on file Last Filed Vital Signs Vital Sign Reading Time Taken Comments Blood Pressure 176/94 08/21/2024 12:48 PM [employer] NOTCHER rn notified Pulse 90 08/21/2024 12:48 PM [employer]CHER Temperature 37.1 C (98.8 F) 08/21/2024 8:20 AM [employer]ARD NOTCHER Respiratory Rate 18 08/21/2024 12:4 8 PM [employer]ARD NOTCHER Oxygen Saturation 98% 08/21/2024 12: 48 PM [employer] NOTCHER Inhaled Oxygen Concentration - - Weight 96.4 kg (212 lb 8 oz) 08/20/2024 9:46 AM [employer]ARD NOTCHER Height 167.6 cm (5' 6 ) 08/20/2024 9:46 AM [employer]ARD NOTCHER Body Mass Index 34.3 08/20/2024 9:46 AM SHAKE BACKBOARD NOTCHER Plan of Treatment Upcoming Encounters Date Type Department Care Team (Late st Contact Info) Description 09/02/2024 1:00 PM [employer]ARD NOTCHER Office Visit [facility] Orthopedic Surgery at the [facility] Medicine [address] [place] [phone] Abhinav Polo MD [address] [place] [address] 09/24/2024 11:05 AM CDT Procedure visit [facility] Urology at the [facility] [address] [place] [address] Otoniel Cates MD [address] [place], [place] [id number] 04/06/2025 3:00 PM CDT Office Visit [facility] Primary [facility] [address] [place] [address] Gómez Kiran Jr., DO [address] [place] [address] Health Maintenance Due Date Last Done Comments HEPATITIS B VACCINES (1 of 3 - 19+ 3-dose series) 1985 FIT-DNA Q 3 years 2011 FIT/FOBT Q 1 year 2011 Flex Sig/CT Colonography Q 5 years 2011 DTAP/TDAP/TD VACCINES (2 - Td or Tdap) 02/09/2020 02/08/2010 COVID-19 Vaccine ( season) 2024 06/19/2023, 05/19/2022, 05/04/2021, Additional history exists Preventative Visit- Commercial 07/15/2024 04/01/2024, 04/11/2022, 12/20/2011, Additional history exists CERVICAL CANCER SCREENING 02/13/20252021, 04/20/2019, 08/13/2018, Additional history exists ZOSTER VACCINE (1 of 2) 04/01/2025 Post poned from 2016 (Patient Refused) BREAST CANCER SCREENING 05/11/2025 05/11/20 24, 10/04/2021, 08/16/2020, Additional history exists Pre-Diabetes and Diabetes Screening 08/20/2027 08/20/2024, 04/08/2024, 05/16/2022 COLORECTAL SCREENING 07/30/2029 07/30/2022, 07/30/2022, 11/01/2014, Additional history exists Colorectal Cancer Screening 07/30/2029 INFLUENZA VACCINE Completed 04/03/2024, , 04/05/2023, Additional history exists Medical Devices Implanted Type Area Market Research Specialist Device Identifier Shelf Expiration Date Model / Serial / Lot Cement Bone Biomet R 1x40 [id number] - [id number] Implanted:Qty : 1 on 08/20/2024 by Abhinav Polo MD at [facility] Cement Right: Knee [employer] [id number] 11/11/2026 [id number] / / [id number] Cement Bone Biomet R 1x40 [id number] - [id number] Implanted:Qty : 1 on 08/20/2024 by Abhinav Polo MD at [facility] Cement Right: Knee [employer] [id number] 11/11/2026 [id number] / / [id number] Comp Fem Vanguard Cr Interlock Rt 65mm [id number] - [id number] Implanted:Qty : 1 on 08/20/2024 by Abhinav Polo MD at [facility] Knee Right: Knee [employer] [id number] 05/28/2034 [id number] / / [id number] Comp Tib Cocr Finned 75mm [id number] - [id number] Implanted:Qty : 1 on 08/20/2024 by Abhinav Polo MD at [facility] Knee Right: Knee [employer]ET 06/26/2034 [id number] / / [id number] Bearing Vanguard Ant Stab 10x75 [id number] - [id number] Implanted:Qty : 1 on 08/20/2024 by Abhinav Polo MD at [facility] Knee Right: Knee [employer]ET [id number] 03/03/2029 [id number] / / [id number] Description:REQ [id number] Procedures Procedure Name Priority Date/Time Associated Diagnosis Comments BASIC METABOLIC PANEL Routine 08/21/2024 11:58 AM SHAKE [employer]ARD NOTCHER CBC WITH DIFFERENTIAL Routine 08/21/2024 11:58 AM SHAKE [employer]BOARD NOTCHER XR KNEE 1 OR 2 VW RIGHT Routine 08/20/2024 3:13 PM SHAKE [employer]BOARD NOTCHER OH ANESTHESIA BLOCK PB PLACEHOLDER CHARGE Routine 08/20/2024 1:24 PM SHAKE BACKBOARD NOTCHER OH ANES INSERT SUPRAGLOTTIC AIRWAY Routine 08/20/2024 11:53 AM SHAKE [employer]BOARD NOTCHER OH ARTHRP KNE CONDYLE&PLATU MEDIAL&LAT COMPARTMENTS 08/20/2024 10:54 AM [employer]ARD NOTCHER Primary osteoarthritis of right knee IR INJECTION Routine 08/20/2024 10:20 AM [employer] NOTCHER HEMOGLOBIN A1C Stat 08/20/2024 9:44 AM [employer]ARD NOTCHER Primary osteoarthritis of right knee CBC WITH DIFFERENTIAL Stat 08/20/2024 9:44 AM [employer]ARD NOTCHER Primary osteoarthritis of right knee BASIC METABOLIC PANEL Stat 08/20/2024 9:44 AM SHA[employer]ARD NOTCHER Primary osteoarthritis of right knee POC GLUCOSE Routine 08/20/2024 9:33 AM SHA[employer]ARD NOTCHER ECHO COMPLETE Stat 07/18/2024 2:04 PM [employer]ARD NOTCHER LVH (left ventricular hypertrophy) Heart murmur CBC WITHOUT DIFFERENTIAL Routine 07/16/2024 3:39 PM [employer]ARD NOTCHER BASIC METABOLIC PANEL Routine 07/16/2024 3:39 PM [employer] NOTCHER EKG 12-LEAD Routine 07/16/2024 3:32 PM [employer]ARD NOTCHER XR KNEE 4+ VW RIGHT Routine 06/10/2024 1 0:00 AM [employer]ARD NOTCHER Chronic pain of right knee MAMMO 3D CHERIE SCREEN BILAT W OR WO CAD Routine 05/11/2024 3:59 PM CDT Breast cancer screening by mammogram COLONOSCOPY REPORT 07/30/2022 9: 35 AM SHAKE [employer]BOARD NOTCHER CERV/VAG CYTO AGE BASED SCREEN PAP Routine 02/13/2022 2:55 PM CDT Screening for cervical cancer from Last 3 Months or Most Recently Relevant to Health Maintenance Results * (ABNORMAL) CBC WITH DIFFERENTIAL (08/21/2024 11:58 AM SHAKE BACKBOARD NOTCHER) Only the most recent of2 resultswithin the time period is included. WBC 9.2 4.0 - 9.8 K/uL 08/21/2024 12:24 PM SHAKE [employer]ARD NOT[employer] [facility] RBC 4.46 3.90 - 4.90 M/uL 08/21/2024 12:24 PM SHAKE BACKBOARD NOTCHER [employer] [facility] HEMOGLOBIN 13.1 11.8 - 14.8 g/dL 08/21/2024 12:24 PM SHA[employer]ARD NOTCHER [employer] [facility] HEMATOCRIT 39.6 35.5 - 44.0 % 08/21/2024 12:24 PM SHA[employer]ARD NOTCHER [employer] [facility] MCV 88.8 82.0 - 99.0 fL 08/21/2024 12:24 PM SHA[employer]ARD NOTCHER [employer] [facility] MCH 29.4 27.2 - 32.6 pg 08/21/2024 12:24 PM SHAKE [employer]BOARD NOTCHER [facility] MCHC 33.1 31.5 - 35.5 g/dL 08/21/2024 12:24 PM SHAKE [employer]ARD NOTCHER [employer] RDW 14.1 11.5 - 14.5 % 08/21/2024 12:24 PM SHA[employer]ARD NOTCHER [employer] RDW-STDEV 45.6 37.1 - 48.7 fL 08/21/2024 12:24 PM SHAKE [employer]ARD NOTCHER [facility] PLATELETS 332 140 - 350 K/uL 08/21/2024 12:24 PM SHA[employer]ARD NOTCHER [employer] [facility] MPV 9.0(L) 9.3 - 12.4 fL 08/21/2024 12:24 PM SHAKE [employer]BOARD NOTCHER [employer] [facility] NEUTROPHILS 90 % 08/21/2024 12:24 PM SHA[employer]ARD NOTCHER [employer] [facility] LYMPHOCYTES 6 % 08/21/2024 12:24 PM SHA[employer]ARD NOTCHER [employer] [facility] - . [facility] MONOCYTES 3 % 08/21/2024 12:24 PM SHA[employer]ARD NOTCHER [employer] [facility] - . [facility] EOSINOPHILS 0 % 08/21/2024 12:24 PM [employer] NOTCHER [employer] [facility] - . [facility] BASOPHILS 0 % 08/21/2024 12:24 PM SHAKE [employer]ARD NOTCHER [employer] [facility] IMMATURE GRANULOCYTES 0 % 08/21/2024 12:24 PM [employer] NOTCH[employer] [facility] - . [facility] NEUTROPHIL ABSOLUTE 8.22(H) 1.90 - 7.00 K/uL 08/21/2024 12:24 PM SHA[employer]ARD NOTCHER [employer] [facility] - . [facility] LYMPHOCYTE ABSOLUTE 0.55(L) 0.70 - 4.50 K/uL 08/21/2024 12:24 PM SHAKE [employer]ARD NOTCHER [employer] [facility] - . [facility] MONOCYTE ABSOLUTE 0.31 0.10 - 1.30 K/uL 08/21/2024 12:24 PM [employer] NOT[employer] [facility] - . [facility] EOSINOPHIL ABSOLUTE 0.01 0.00 - 0.70 K/uL 08/21/2024 12:24 PM SHA[employer]ARD NOTCHER [employer] [facility] SERVICES - . [facility] BASOPHILS ABSOLUTE 0.03 0.00 - 0.20 K/uL 08/21/2024 12:24 PM SHAKE [employer]BOARD NOTCHER [employer] LABORATORY SERVICES - [facility] IMMATURE GRANULOCYTES ABSOLUTE 0.03 0.00 - 0.03 K/uL 08/21/2024 12:24 PM [facility] LABORATORY SERVICES - [facility] Blood Venipuncture / Unknown 08/21/2024 11:58 AM SHAKE [employer]BOARD NOTCHER 08/21/2024 12:01 PM SHA[employer]ARD NOTCHER us Abhinav Polo MD HEMATOLOGY ORDERABLES Final Res ult [facility] [email or web address] SERVICES [facility] CLIA# [id number] [address] [place] [address] * (ABNORMAL) BASIC METABOLIC PANEL (08/21/2024 11:58 AM SHAKE BACKBOARD NOTCHER) Only the most recent of3 resultswithin the time period is included. SODIUM 137 136 - 145 mmol/L 08/21/2024 1:04 PM [facility] [employer] LABORATORY SERVICES - . [facility] POTASSIUM 3.8 3.5 - 5.0 mmol/L 08/21/2024 1:04 PM [facility] [employer] LABORATORY SERVICES - . [facility] CHLORIDE 101 98 - 107 mmol/L 08/21/2024 1:04 PM [facility] [employer] LABORATORY SERVICES - . [facility] CO2 24 22 - 29 mmol/L 08/21/2024 1:04 PM [facility] . [facility] CALCIUM 9.2 8.6 - 10.2 mg/dL 08/21/2024 1:04 PM [facility] [employer] LABORATORY SERVICES - . [facility] BUN 11 6 - 20 mg/dL 08/21/2024 1:04 PM [facility] [employer] LABORATORY SERVICES [facility]. [facility] CREATININE 0.68 0.51 - 0.95 mg/dL 08/21/2024 1:04 PM [facility] [employer] LABORATORY SERVICES - . [facility] GLUCOSE 122(H) 74 - 99 mg/dL 08/21/2024 1:04 PM [facility] [employer] LABORATORY SERVICES - . [facility] GFR >60 >=60 mL/min/1.7 3 sq meter 08/21/2024 1:04 PM [facility] [employer] [facility] - [facility] Comment:eGFR calculated with 2020 CKD-EPI equation. Vegetarian diet, extremely high or low muscle mass, and may affect results. Cystatin C with Glomerular Filtration Rate is a suitable alternative for these patients. ANION GAP 12 8 - 16 mmol/L 08/21/2024 1:04 PM SHAKE [employer]BOARD NOTCHER [facility] LABORATORY [facility] Blood Venipuncture / Unknown 08/21/2024 11:58 AM SHA[employer]BOARD NOTCHER 08/21/2024 12:01 PM [employer]BOARD NOTCHER Abhinav Polo MD CHEMISTRY ORDERABLES Final Resu lt [facility] [email or web address] [facility] CLIA# [id number] [address] [facility] [address] [place] [address] * XR KNEE 1 OR 2 VW RIGHT (08/20/2024 3:13 PM SHAKE BACKBOARD NOTCHER) Anatomical Region Laterality Modality Lower Extremity Computed Radiogr aphy 08/20/2024 3:14 PM SHAKE [employer]BOARD NOTCHER Impressions 08/20/2024 5:08 PM SHAKE BACKBOARD NOTCHER IMPRESSION: 1. Expected postoperative changes DICTATION LOCATION: Location [address] [place] [address] Narrative 08/20/2024 5:08 PM SHAKE [employer]BOARD NOTCHER XR KNEE 1 OR 2 VW RIGHT DATE: 08/20/2024 3:13 PM HISTORY: Post operative evaluation TECHNIQUE: Two images of the right knee COMPARISON: June 10, 2024 FINDINGS: Expected postoperative changes of a right knee arthroplasty. No hardware or osseous complications identified. Procedure Note Aaron Beltre MD - 08/20/2024 XR KNEE 1 OR 2 VW RIGHT DATE: 08/20/2024 3:13 PM HISTORY: Post operative evaluation TECHNIQUE: Two images of the right knee COMPARISON: June 10, 2024 FINDINGS: Expected postoperative changes of a right knee arthroplasty. No hardware or osseous complications identified. IMPRESSION: 1. Expected postoperative changes DICTATION LOCATION: Location [address] [place] [address] Abhinav Polo MD DIAGNOSTIC IMAGING ORDERABLES F inal Result * [place] ANESTHESIA BLOCK PB PLACEHOLDER CHARGE (08/20/2024 1:24 PM SHAKE BACKBOARD NOTCHER) Narrative Darnell Fernandes MD - 08/20/2024 1:24 PM SHAKE BACKBOARD NOTCHER Darnell Fernandes MD 08/20/2024 1:25 PM R adductor canal block Patient location during procedure: Pre-op Start time: 08/20/2024 11:00 AM End time: 08/20/2024 11:10 AM Reason for block: at surgeon's request and post-op pain management Staffing Performed: Anesthesiologist (/) Authorized by: Darnell Fernandes MD Performed by: Darnell Fernandes MD Preanesthetic Checklist Completed: patient identified, IV checked, site marked, risks and benefits discussed, surgical consent, monitors and equipment checked, pre-op evaluation and timeout performed Hand hygiene performed prior to procedure Patient was prepped and draped in usual sterile fashion Patient position: Supine Prep: ChloraPrep Patient monitoring: Continuous pulse oximetry, Heart rate and Non-invasive blood pressure Block Region: Lower Extremity Block Block Type: Adductor Canal Block Laterality: Right Injection technique: Single-shot [place] Identification: ultrasound guided Local infiltration anesthetic: Lidocaine 2%- 1 mL. Local injected: Bupivacaine with epinephrine and Bupivacaine 0.25% Total Volume Injected (mL): 25 Needle Needle type: Short-bevel Needle gauge: 22 G Needle length: 8 cm. Needle localization: Ultrasound guidance Nerve Stimulator or Paresthesia Response Motor response or paresthesia obtained mA ms Depth (cm) Sedation Given: Midazolam (mg): 2 Patient Response: Awake and Responsive to verbal stimuli Assessment Paresthesia pain: None Heart rate change: no Slow fractionated injection: yes Narrative Injections made incrementally with aspirations every (mL): 5 Events: easy and well tolerated and no block events Outcome: Complete Additional Notes I have discussed with the patient, and/or surrogate, the placement of an adductor canal nerve block for postoperative pain management. We have discussed the risks, benefits, complications and side effects. We have also discussed alternative methods of postoperative analgesia. The patient, and/or surrogate, understands and wishes to proceed with the procedure. Heart rate and Sp02 monitored during and immediately following procedure and stable throughout. us Darnell Fernandes MD PROCEDURE/MINOR SURGICAL ORDER LAWSON Final Result * OH ANES INSERT SUPRAGLOTTIC AIRWAY (08/20/2024 11:53 AM SHAKE BACKBOARD NOTCHER) Narrative Delmy Shepherd CRNA - 08/20/2024 11:53 AM SHAKE [employer]BOARD NOTCHER Delmy Shepherd CRNA 08/20/2024 12:03 PM Airway Date/Time: 08/20/2024 11:53 AM Location: OR Plan: elective intubation Patient Identity Confirmed by: Verbally with patient and armband Airway: not difficult Staffing Performed: BUSINESS SYSTEMS ARCHITECT/CAA Authorized by: Becca Damon MD Performed by: Delmy Shepherd CRNA Lithographic Plate Maker Apprentice: Becca Damon MD Indications and Patient Condition: Indications for Airway Management: Anesthesia Sedation Level: general anesthesia Preoxygenated: yes Patient Position: Ramp Mask Difficulty Assessment: 0 - not attempted Plan to extubate at end of case: Yes Final Airway Details: Final Airway Type: Supraglottic airway Final Supraglottic Airway: LMA Lubricant used: Yes LMA size: 4 Placement Verified by: auscultation, end tidal CO2 and chest rise Number of Attempts at Approach: 1 Additional Procedure Information: atraumatic and dentition unchanged Becca Damon MD PROCEDURE/MINOR SURGICAL O RDERABLES Final Result * IR INJECTION (08/20/2024 10:20 AM SHAKE [employer]BOARD NOTCHER) Narrative 08/20/2024 10:20 AM SHAKE BACKBOARD NOTCHER Order information only. Exam was auto-finalized. Darnell Fernandes MD IR ORDERABLES Final Result * (ABNORMAL) HEMOGLOBIN A1C (08/20/2024 9:44 AM SHAKE BACKBOARD NOTCHER) HEMOGLOBIN A1C 5.7(H) <5.7 % 08/20/2024 11:26 AM SHAKE BACKBOARD NOTCHER [facility] [employer] [facility] EST. AVG GLUCOSE, A1C 117 mg/dL 08/20/2024 11:26 AM SHAKE BACKBOARD NOTCHER [facility] [employer] [facility] Blood Venipuncture / Unknown 08/20/2024 9:44 AM [employer]BOARD NOTCHER 08/20/2024 10:55 AM SHAKE BACKBOARD NOTCHER Narrative [facility] [employer] [facility] - 08/20/2024 11:26 AM SHAKE BACKBOARD NOTCHER HGB A1C INTERPRETATION NORMAL: <5.7% PRE-DIABETES: 5.7 - 6.4% DIABETES: 6.5% OR GREATER Abhinav Polo MD CHEMISTRY ORDERABLES Final Resu lt [facility]# [id number] [address] [place] [address] * POC GLUCOSE (08/20/2024 9:33 AM SHAKE BACKBOARD NOTCHER) Pathologist [facility] GLUCOSE POC 90 74 - 99 mg/dL 08/20/2024 9:33 AM [facility], GLUCOSE POC Whole Blood 08/20/2024 9:33 AM [facility] COMMENT, GLU POC Notified RN/MD 08/20/2024 9:33 AM [facility] [employer] [facility] Blood, whole 08/20/2024 9:33 AM [employer]ARD NOTCHER 08/20/2024 9:48 AM [employer] BACKBOARD NOTCHER Abhinav Polo MD POINT OF CARE TESTING Final Res ult [facility]# [id number] [address] [place] [address] * ECHO COMPLETE - CONTRAST AND STRAIN IF INDICATED (07/18/2024 2:04 PM SHAKE BACKBOARD NOTCHER) Pathologist [facility] EJECTION FRACTION 60 INTERFACE SYSTEM 07/18/2024 1:22 PM SHAKE BACKBOARD NOTCHER Narrative INTERFACE SYSTEM - 07/18/2024 2:09 PM SHAKE BACKBOARD NOTCHER Transthoracic Echocardiogram Patient: Norman Guerrero Study ID: [id number] Gender: F : 1965 Age: 59 Race: CAU Height 170.2cm Study Date: 07/18/2024 Weight: 95.2kg Access. #: [id number] BP: 130 / 82 *Referring Physician:Gómez Rivers Jr, Jr, Frederick H *Ordering Physician:Gómez Rivers JrMononitrotoluene Operator:Seamus Jose [facility] orthoptist: Nurse: Indications: LVH. MURMUR. History: PMH: No prior cardiac history. Risk factors: The patient is a former tobacco user. STUDY CONCLUSIONS: SUMMARY: - Left ventricle: The cavity size was normal. Wall thickness was increased in a pattern of mild LVH. Global systolic function is normal. For Epic reporting: the left ventricular ejection fraction is 60% . - Mitral valve: Mild regurgitation. - Left atrium: The atrium is normal in size. - Right ventricle: The cavity size is normal. Systolic function is normal. - Tricuspid valve: Mild regurgitation. - Pulmonary arteries: The peak systolic pressure is 8mm Hg. Cardiac Anatomy: LEFT VENTRICLE: The cavity size was normal. Wall thickness was increased in a pattern of mild LVH. Global systolic function is normal. For Epic reporting: the left ventricular ejection fraction is 60% . Global longitudinal strain was -21.7% (GLS is abnormal if greater than -16, i.e. -15). AORTIC VALVE: Structurally normal valve. Trileaflet. No significant regurgitation. The mean systolic gradient is 7mm Hg. The peak systolic gradient is 13mm Hg. The LVOT to aortic valve VTI ratio is 0.88. The valve area is 2.8cm^2. The ratio of LVOT to aortic valve peak velocity is 0.92. AORTA: Aortic root: The root is normal-sized. MITRAL VALVE: Structurally normal valve. Mild regurgitation. The mean diastolic gradient is 3mm Hg. The peak diastolic gradient is 5mm Hg. LEFT ATRIUM: The atrium is normal in size. RIGHT VENTRICLE: The cavity size is normal. Systolic function is normal. PULMONIC VALVE: Structurally normal valve. No significant regurgitation. TRICUSPID VALVE: Structurally normal valve. Mild regurgitation. PULMONARY ARTERY: Systolic pressure was within the normal range. RIGHT ATRIUM: The atrium was normal in size. SYSTEMIC VEINS: Inferior vena cava: The IVC is normal-sized. PERICARDIUM: There is no pericardial effusion. Measurements Left ventricle Value Ref GLS, 2D -21.7 % --------- IVS, ES, LAX 1.3 cm --------- ANY, LAX (L) 3.1 cm 3.8 - 5.2 ANY/bsa, LAX (L) 1.5 cm/m^2 2.3 - 3.1 ANY, LAX chord (N) 4.6 cm 3.8 - 5.2 ESD, LAX chord (N) 3.1 cm 2.2 - 3.5 ANY/bsa, LAX chord (L) 2.2 cm/m^2 2.3 - 3.1 ESD/bsa, LAX chord (N) 1.5 cm/m^2 1.3 - 2.1 FS, LAX chord (N) 33 % 27 - 45 IVS, ED (H) 1.0 cm 0.6 - 0.9 IVS, ES 1.3 cm --------- IVS thickening 30 % --------- PW, ED (N) 0.9 cm 0.6 - 0.9 PW, ES 1.3 cm --------- EDV, 2-p (N) 101 ml 46 - 106 ESV, 2-p (N) 40 ml 14 - 42 EF, 2-p (N) 61 % 54 - 74 SV, 2-p 62 ml --------- SV/bsa, 2-p 29.9 ml/m^2 --------- E', med fady, TDI (N) 10.1 cm/sec >=7.0 E/e', med fady, TDI 10 --------- LVOT Value Ref Diam, S 2.0 cm --------- Area 3.1 cm^2 --------- Peak harvinder, S 1.64 m/sec --------- VTI, S 34.1 cm --------- Peak grad, S 11 mm Hg --------- Right ventricle Value Ref ANY minor ax, A4C base (N) 3.6 cm 2.5 - 4.1 ANY minor ax, A4C mid (N) 2.6 cm 1.9 - 3.5 ANY major ax, A4C (N) 7.2 cm 5.9 - 8.3 TAPSE, MM (N) 2.2 cm >=1.7 Pressure, S 15 mm Hg --------- S' lateral (N) 11.9 cm/sec >=9.5 Left atrium Value Ref AP dim, ES (N) 3.2 cm 2.7 - 3.8 AP dim index, ES (N) 1.6 cm/m^2 1.5 - 2.3 SI dim, A4C 5.5 cm --------- Area ES, A4C (N) 17 cm^2 <=20 Area/bsa ES, A4C 8.25 cm^2/m^2 --------- SI dim, A2C 5.1 cm --------- SI dim, shorter 5.1 cm --------- Vol, ES, 1-p A4C (N) 40 ml 22 - 52 Vol/bsa, ES, 1-p A4C (N) 20 ml/m^2 11 - 40 Vol, ES, 1-p A2C (N) 35 ml 22 - 52 Vol/bsa, ES, 1-p A2C (N) 17 ml/m^2 13 - 40 Vol, ES, 2-p 39 ml --------- Vol/bsa, ES, 2-p (N) 19 ml/m^2 16 - 34 LA/Ao root ratio 1.07 --------- Right atrium Value Ref SI dim, ES, A4C (N) 5.3 cm 3.4 - 5.3 SI dim/bsa, ES, A4C (N) 2.6 cm/m^2 1.9 - 3.1 Area, ES, A4C (N) 14 cm^2 10 - 18 Vol, ES, 1-p A4C 30 ml --------- Vol/bsa, ES, 1-p A4C (N) 15 ml/m^2 9 - 33 Aortic valve Value Ref Peak v, S 1.8 m/sec --------- Mean v, S 1.2 m/sec --------- VTI, S 38.7 cm --------- Mean grad, S 7 mm Hg --------- Peak grad, S 13 mm Hg --------- LVOT/AV, VTI ratio 0.88 --------- JOSEF, VTI 2.8 cm^2 --------- JOSEF/bsa, VTI 1.34 cm^2/m^2 --------- LVOT/AV, Vpeak ratio 0.92 --------- JOSEF, Vmax 2.9 cm^2 --------- JOSEF/bsa, Vmax 1.4 cm^2/m^2 --------- Mitral valve Value Ref Peak E 1.06 m/sec --------- Peak A 1.16 m/sec --------- Mean grad, D 3 mm Hg --------- Peak grad, D 5 mm Hg --------- Peak E/A ratio 0.9 --------- Pulmonic valve Value Ref Peak v, S 1.3 m/sec --------- Peak grad, S 7 mm Hg --------- Tricuspid valve Value Ref TR peak v (N) 1.6 m/sec <=2.8 Peak RV-RA grad, S 10 mm Hg --------- Aortic root Value Ref Root diam, 3.0 cm --------- Ascending aorta Value Ref AAo AP diam, S 3.0 cm --------- AAo AP diam/bsa, S 1.5 cm/m^2 --------- Pulmonary artery Value Ref Pressure, S 8 mm Hg --------- Systemic veins Value Ref Estimated RA pressure 5 mm Hg --------- Legend: (L) and (H) chencho values outside specified reference range. (N) waddell values inside specified reference range. Procedure data: [facility] No prior study was available for comparison. Study status: Routine. Procedure information: A transthoracic echocardiogram was performed. Image quality was adequate. Scanning was performed from the parasternal, apical, and subcostal acoustic windows. Transthoracic echocardiogram. Complete 2D, complete spectral Doppler, and color Doppler. Birthdate: Patient birthdate: 1965. Age: Patient is 59year(s) old. Sex: gender: female. Height: 170.2cm. 67in. Weight: 95.2kg. 209.8lb. Body mass index: 32.9kg/m^2. Body surface area: 2.06m^2. Heart rate: 75bpm. Blood pressure: 130/82 Patient status: Outpatient. Study date: Study date: 07/18/2024. Study time: 01:22 PM. Location: Bedside. Prepared and Electronically Authenticated Josesito Bradshaw MD [id number] Procedure Note Fabian Bradshaw MD - 07/18/2024 Transthoracic Echocardiogram Patient: Norman Guerrero Study ID: [id number] Gender: F : 1965 Age: 59 Race: CAU Height 170.2cm Study Date: 07/18/2024 Weight: 95.2kg Access. #: [id number] BP: 130 / 82 *Referring Physician:* Gómez Kiran Jr, Jr, Frederick H *Ordering Physician:Gómez Rivers JrMononitrotoluene Operator:Seamus Jose [facility] orthoptist: Nurse: Indications: LVH. MURMUR. History: PMH: No prior cardiac history. Risk factors: The patient is a former tobacco user. STUDY CONCLUSIONS: SUMMARY: - Left ventricle: The cavity size was normal. Wall thickness was increasedin a pattern of mild LVH. Global systolic function is normal. For Epic reporting: the left ventricular ejection fraction is 60% . - Mitral valve: Mild regurgitation. - Left atrium: The atrium is normal in size. - Right ventricle: The cavity size is normal. Systolic function isnormal. - Tricuspid valve: Mild regurgitation. - Pulmonary arteries: The peak systolic pressure is 8mm Hg. Cardiac Anatomy: LEFT VENTRICLE: The cavity size was normal. Wall thickness was increasedin a pattern of mild LVH. Global systolic function is normal. For Epicreporting: the left ventricular ejection fraction is 60% . Global longitudinal strainwas -21.7% (GLS is abnormal if greater than -16, i.e. -15). AORTIC VALVE: Structurally normal valve. Trileaflet. No significant regurgitation. The mean systolic gradient is 7mm Hg. The peak systolic gradient is 13mm Hg. The LVOT to aortic valve VTI ratio is 0.88. Thevalve area is 2.8cm^2. The ratio of LVOT to aortic valve peak velocity is0.92. AORTA: Aortic root: The root is normal-sized. MITRAL VALVE: Structurally normal valve. Mild regurgitation. Themean diastolic gradient is 3mm Hg. The peak diastolic gradient is 5mm Hg. LEFT ATRIUM: The atrium is normal in size. RIGHT VENTRICLE: The cavity size is normal. Systolic function isnormal. PULMONIC VALVE: Structurally normal valve. No significantregurgitation. TRICUSPID VALVE: Structurally normal valve. Mild regurgitation. PULMONARY ARTERY: Systolic pressure was within the normal range. RIGHT ATRIUM: The atrium was normal in size. SYSTEMIC VEINS: Inferior vena cava: The IVC is normal-sized. PERICARDIUM: There is no pericardial effusion. Measurements Left ventricle Value Ref GLS, 2D -21.7 % --------- IVS, ES, LAX 1.3 cm --------- ANY, LAX (L) 3.1 cm 3.8 - 5.2 ANY/bsa, LAX (L) 1.5 cm/m^2 2.3 - 3.1 ANY, LAX chord (N) 4.6 cm 3.8 - 5.2 ESD, LAX chord (N) 3.1 cm 2.2 - 3.5 ANY/bsa, LAX chord (L) 2.2 cm/m^2 2.3 - 3.1 ESD/bsa, LAX chord (N) 1.5 cm/m^2 1.3 - 2.1 FS, LAX chord (N) 33 % 27 - 45 IVS, ED (H) 1.0 cm 0.6 - 0.9 IVS, ES 1.3 cm --------- IVS thickening 30 % --------- PW, ED (N) 0.9 cm 0.6 - 0.9 PW, ES 1.3 cm --------- EDV, 2-p (N) 101 ml 46 - 106 ESV, 2-p (N) 40 ml 14 - 42 EF, 2-p (N) 61 % 54 - 74 SV, 2-p 62 ml --------- SV/bsa, 2-p 29.9 ml/m^2 --------- E', med fady, TDI (N) 10.1 cm/sec >=7.0 E/e', med fady, TDI 10 --------- LVOT Value Ref Diam, S 2.0 cm --------- Area 3.1 cm^2 --------- Peak harvinder, S 1.64 m/sec --------- VTI, S 34.1 cm --------- Peak grad, S 11 mm Hg --------- Right ventricle Value Ref ANY minor ax, A4C base (N) 3.6 cm 2.5 - 4.1 ANY minor ax, A4C mid (N) 2.6 cm 1.9 - 3.5 ANY major ax, A4C (N) 7.2 cm 5.9 - 8.3 TAPSE, MM (N) 2.2 cm >=1.7 Pressure, S 15 mm Hg --------- S' lateral (N) 11.9 cm/sec >=9.5 Left atrium Value Ref AP dim, ES (N) 3.2 cm 2.7 - 3.8 AP dim index, ES (N) 1.6 cm/m^2 1.5 - 2.3 SI dim, A4C 5.5 cm --------- Area ES, A4C (N) 17 cm^2 <=20 Area/bsa ES, A4C 8.25 cm^2/m^2 --------- SI dim, A2C 5.1 cm --------- SI dim, shorter 5.1 cm --------- Vol, ES, 1-p A4C (N) 40 ml 22 - 52 Vol/bsa, ES, 1-p A4C (N) 20 ml/m^2 11 - 40 Vol, ES, 1-p A2C (N) 35 ml 22 - 52 Vol/bsa, ES, 1-p A2C (N) 17 ml/m^2 13 - 40 Vol, ES, 2-p 39 ml --------- Vol/bsa, ES, 2-p (N) 19 ml/m^2 16 - 34 LA/Ao root ratio 1.07 --------- Right atrium Value Ref SI dim, ES, A4C (N) 5.3 cm 3.4 - 5.3 SI dim/bsa, ES, A4C (N) 2.6 cm/m^2 1.9 - 3.1 Area, ES, A4C (N) 14 cm^2 10 - 18 Vol, ES, 1-p A4C 30 ml --------- Vol/bsa, ES, 1-p A4C (N) 15 ml/m^2 9 - 33 Aortic valve Value Ref Peak v, S 1.8 m/sec --------- Mean v, S 1.2 m/sec --------- VTI, S 38.7 cm --------- Mean grad, S 7 mm Hg --------- Peak grad, S 13 mm Hg --------- LVOT/AV, VTI ratio 0.88 --------- JOSEF, VTI 2.8 cm^2 --------- JOSEF/bsa, VTI 1.34 cm^2/m^2 --------- LVOT/AV, Vpeak ratio 0.92 --------- JOSEF, Vmax 2.9 cm^2 --------- JOSEF/bsa, Vmax 1.4 cm^2/m^2 --------- Mitral valve Value Ref Peak E 1.06 m/sec --------- Peak A 1.16 m/sec --------- Mean grad, D 3 mm Hg --------- Peak grad, D 5 mm Hg --------- Peak E/A ratio 0.9 --------- Pulmonic valve Value Ref Peak v, S 1.3 m/sec --------- Peak grad, S 7 mm Hg --------- Tricuspid valve Value Ref TR peak v (N) 1.6 m/sec <=2.8 Peak RV-RA grad, S 10 mm Hg --------- Aortic root Value Ref Root diam, 3.0 cm --------- Ascending aorta Value Ref AAo AP diam, S 3.0 cm --------- AAo AP diam/bsa, S 1.5 cm/m^2 --------- Pulmonary artery Value Ref Pressure, S 8 mm Hg --------- Systemic veins Value Ref Estimated RA pressure 5 mm Hg --------- Legend: (L) and (H) chencho values outside specified reference range. (N) waddell values inside specified reference range. Procedure data: [facility] No prior study was available for comparison. Studystatus: Routine. Procedure information: A transthoracic echocardiogram was performed. Image quality was adequate. Scanning was performed from the parasternal, apical, and subcostal acoustic windows.Transthoracic echocardiogram. Complete 2D, complete spectral Doppler, and colorDoppler. Birthdate: Patient birthdate: 1965. Age: Patient is 59year(s)old. Sex: gender: female. Height: 170.2cm. 67in. Weight: 95.2kg. 209.8lb. Body mass index: 32.9kg/m^2. Body surface area: 2.06m^2.Heart rate: 75bpm. Blood pressure: 130/82 Patient status:Outpatient. Study date: Study date: 07/18/2024. Study time: 01:22 PM. Location: Bedside. Prepared and Electronically Authenticated Josesito Bradshaw MD [id number] us Gómez Kiran Jr., US ORDERABLES Final Result Performing Organization Address City/State/[facility] Co de Phone Number INTERFACE SYSTEM Refer to clinic/hospital department * (ABNORMAL) CBC WITHOUT DIFFERENTIAL (07/16/2024 3:39 PM SHAKE BACKBOARD NOTCHER) WBC 9.9(H) 4.0 - 9.8 K/uL 07/16/2024 4:59 PM [employer] RBC 4.73 3.90 - 4.90 M/uL 07/16/2024 4:59 PM [employer] HEMOGLOBIN 13.6 11.8 - 14.8 g/dL 07/16/2024 4:59 PM [employer]ARD NOTCHER [facility] - . [facility] HEMATOCRIT 42.7 35.5 - 44.0 % 07/16/2024 4:59 PM [employer] NOT[employer] - . [facility] MCV 90.3 82.0 - 99.0 fL 07/16/2024 4:59 PM [employer]ARD NOTCH[employer] [facility] MCH 28.8 27.2 - 32.6 pg 07/16/2024 4:59 PM SHA[employer]ARD NOTCHER [facility] - [facility] MCHC 31.9 31.5 - 35.5 g/dL 07/16/2024 4:59 PM [employer]ARD NOTCHER [facility] - . [facility] PLATELETS 458(H) 140 - 350 K/uL 07/16/2024 4:59 PM SHA[employer]BOARD NOTCHER [facility] - . [facility] MPV 9.0(L) 9.3 - 12.4 fL 07/16/2024 4:59 PM [employer]ARD NOTCHER [facility] RDW 13.6 11.5 - 14.5 % 07/16/2024 4:59 PM [employer]ARD NOTCHER [facility] - . [facility] RDW-STDEV 45.1 37.1 - 48.7 fL 07/16/2024 4:59 PM SHAKE BACKBOARD NOTCHER [employer] LABORATORY SERVICES - . [facility] Blood Venipuncture / Unknown 07/16/2024 3:39 PM SHAKE BACKBOARD NOTCHER 07/16/2024 4:39 PM SHAKE BACKBOARD NOTCHER Wilmer JOHN HEMATOLOGY ORDERABLES Final Result [facility]# [id number] [address] [place] [address] [place] [address] * EKG 12-LEAD (07/16/2024 3:32 PM SHAKE BACKBOARD NOTCHER) 07/16/2024 3:32 PM SHAKE BACKBOARD NOTCHER Narrative INTERFACE SYSTEM - 07/16/2024 6:25 PM [place] [address] Test Date: 2024-07-16 Pat Name: NORMAN CASTREJONHUSAM Department: 36 Room: Gender: Female [employer] Relationship Manager: [facility] : 1965 Requested By: ABHINAV POLO Order Number: [id number] Reading MD: Damian Hilliard Measurements Intervals [place] Rate: 73 P: 51 [place]: 139 QRS: -11 QRSD: 90 T: 59 QT: 397 QTc: 438 Interpretive Statements Sinus rhythm Left ventricular hypertrophy Electronically Signed On 07-16-2024 18:25:38 SHAKE BACKBOARD NOTCHER by Damian Hilliard Procedure Note Damian Hilliard MD - 07/16/2024 [place] [address] Test Date: 2024-07-16 Pat Name: NORMAN GUERRERO Department: 36 Room: Gender: Female [employer] Relationship Manager: [facility] : 1965 Requested By: ABHINAV POLO Order Number: [id number] Reading JUAN Hilliard Measurements Intervals [place] Rate: 73 P: 51 [place]: 139 QRS: -11 QRSD: 90 T: 59 QT: 397 QTc: 438 Interpretive Statements Sinus rhythm Left ventricular hypertrophy Electronically Signed On 07-16-2024 18:25:38 SHAKE BACKBOARD NOTCHER by Damian Hilliard us Wilmer JOHN ECG ORDERABLES Final Result Performing Organization Address City/[facility]/ZIP Co de Phone Number INTERFACE SYSTEM Refer to clinic/hospital department * XR KNEE 4+ VW RIGHT (06/10/2024 10:00 AM SHAKE BACKBOARD NOTCHER) Anatomical Region Laterality Modality Lower Extremity Computed Radiogr aphy Narrative 06/10/2024 10:20 AM SHAKE BACKBOARD NOTCHER 4 views of the right knee show [id number] cartilage space narrowing on the medial aspect. There is a varus alignment. Subchondral sclerosis and subchondral cyst formation. us Abhinav Polo MD DIAGNOSTIC IMAGING ORDERABLES F inal Result * MAMMO 3D CHERIE SCREEN BILAT W OR WO CAD (05/11/2024 3:59 PM CDT) Anatomical Region Laterality Modality Breast Bilateral Mammography 05/11/2024 1:13 PM CDT Impressions 05/11/2024 3:24 PM CDT IMPRESSION: Negative bilateral screening mammogram. Recommend routine followup. OVERALL FINAL ASSESSMENT: BI-RADS 1 - Negative DICTATION LOCATION: [facility] Narrative 05/11/2024 3:24 PM CDT BILATERAL SCREENING DIGITAL MAMMOGRAMS WITH COMPUTER ASSISTED DIAGNOSIS WITH TOMOGRAPHY DATE: 05/11/2024 1:12 PM HISTORY: Routine screening. COMPARISON: 10/04/2021 and 08/16/2020. TECHNIQUE: A bilateral screening mammogram was performed. Low-dose full-field digital breast tomosynthesis examination was performed with 2D and 3D acquisitions. Examination is read in conjunction with computer aided detection. BREAST COMPOSITION: Scattered fibroglandular densities. FINDINGS: No new masses, suspicious calcifications, or areas of asymmetry or distortion are identified. The images were reviewed using the CAD system. Procedure Note Vidhya White MD - 05/11/2024 BILATERAL SCREENING DIGITAL MAMMOGRAMS WITH COMPUTER ASSISTED DIAGNOSIS WITH TOMOGRAPHY DATE: 05/11/2024 1:12 PM HISTORY: Routine screening. COMPARISON: 10/04/2021 and 08/16/2020. TECHNIQUE: A bilateral screening mammogram was performed. Low-dose full-field digital breast tomosynthesis examination was performed with 2D and 3D acquisitions. Examination is read in conjunction with computer aided detection. BREAST COMPOSITION: Scattered fibroglandular densities. FINDINGS: No new masses, suspicious calcifications, or areas of asymmetry or distortion are identified. The images were reviewed using the CAD system. IMPRESSION: Negative bilateral screening mammogram. Recommend routine followup. OVERALL FINAL ASSESSMENT: BI-RADS 1 - Negative DICTATION LOCATION: [facility] us Yuli E Inyo ANP MAMMO ORDERABLES Final Result * COLONOSCOPY REPORT (07/30/2022 9:35 AM SHAKE BACKBOARD NOTCHER) Narrative Procedure Note Zoltan Umana MD - 07/30/2022 9:34 AM CST [facility] Patient Name: Norman Guerrero Procedure Date: 07/30/2022 Date of : 1965 Age: 57 Attending MD: Zoltan Umana MD, Procedure: Colonoscopy Indications: Surveillance: Personal history of two small adenomatous polyps on last colonoscopy October 2014 Providers: Zoltan Umana MD Referring MD: Gómez Kiran Jr Medicines: Monitored Anesthesia Care Procedure: Informed consent was obtained for the procedure, including moderate sedation after risks were discussed. Based on the pre-procedure assessment, including review of the patient's medical history, medications, allergies, and review of systems, the patient was deemed to be an appropriate candidate for sedation. A timeout was performed. Continuous ECG monitoring, pulse oximetry, blood pressure monitoring, and direct observation were performed. The Colonoscope was introduced through the anus and advanced to the terminal ileum. The quality of the bowel preparation was excellent. Estimated Blood Loss: Estimated blood loss: none. Findings: Two sessile polyps were found in the transverse colon. The polyps were 4 to 5 mm in size. These polyps were removed with a cold snare. Resection and retrieval were complete. Multiple diverticula were found in the sigmoid colon and descending colon. External and internal hemorrhoids were found during retroflexion and during perianal exam. The hemorrhoids were mild/moderate. The terminal ileum appeared normal. Complications: No immediate complications. Impression: - Two 4 to 5 mm polyps in the transverse colon, removed with a cold snare. Resected and retrieved. - Diverticulosis in the sigmoid colon and in the descending colon. - External and internal hemorrhoids. - The examined portion of the ileum was normal. Recommendation: - Await pathology results. - Repeat colonoscopy in 7 years for surveillance if polyps adenomatous. Otherwise repeat in 10 years. - See diverticulosis and hemorrhoid handouts. Zoltan Umana MD 07/30/2022 9:34:36 AM This report has been signed electronically. Number of Addenda: 0 Procedure Date: 07/30/2022 8:50:23 AM [id number] [facility] [address] [place] [address] Zoltan Umana MD GI PROCEDURE ORDERABLES Final Result * CERV/VAG CYTO AGE BASED SCREEN PAP (02/13/2022 2:55 PM CDT) COMMENT (PAP): [facility] [place] Comment: This order for age-based cervical cancer and STI screening follows ACOG guidelines(PB 168, 140, EBR814). See individual assays for performing site location. CLINICAL INFORMATION [facility] [place] Comment:Information not prov ided LAST MENSTRUAL PERIOD [facility] [place] Comment:INFORMATION NOT PROV IDED PREV PAP: [employer] [facility] [place] Comment:INFORMATION NOT PROV IDED PREV BX: [facility] [place] Comment:INFORMATION NOT PROV IDED SOURCE [facility] [place] Comment:[facility] ADEQUACY: [facility] Comment: Satisfactory for evaluation. Endocervical/transformation zone component absent. PAP INTERP [employer] [facility] Comment: Negative for intraepithelial lesion or malignancy. Reactive cellular changes associated with repair COMMENT (PAP TEST) [facility] Comment: This Pap test has been evaluated with computer assisted technology. HYPERKERATOSIS PRESENT AGRICULTURAL SERVICES DIRECTOR: [facility] Comment: ABC, CT(ASCP) CT screening location: [place] [address] [place] [address] PATHOLOGIST [facility] Comment: Gregorio Caballero M.D., Board Certified in Anatomic Pathology and Cytopathology. (electronic signature) EXPLANATORY NOTE [facility] Comment: EXPLANATORY NOTE: The Pap is a screening test for cervical cancer. It is not a diagnostic test and is subject to false negative and false positive results. It is most reliable when a satisfactory sample, regularly obtained, is submitted with relevant clinical findings and history, and when the Pap result is evaluated along with historic and current clinical information. HPV E6/E7 Not Detected Not Detected [facility] Comment: Methodology: Cub Reporter-Mediated Amplification This assay detects E6/E7 viral messenger RNA (mRNA) from 14 high-risk HPV types (16,18,31,33,35,39,45,51,52,56,58,59,66,68). Cervical sources are required for HPV testing. If a vaginal source from a patient who has had a total hysterectomy with removal of cervix was submitted, please contact the testing laboratory for alternative testing options. For additional information, please refer to http://education.[employer]/faq/KNJ895e5 (This link if provided for information/ educational purposes only.) Test Performed at: [facility] [id number] [address] Justin Escalera D.O., MPH SL Genital SWAB OF ENDOCERVIX / Unknown 02/13/2022 2:55 PM CDT 02/14/2022 12:40 AM CDT Jon Zamudio MD PATHOLOGY/CYTOLOGY ORDERABLES nal Result [facility] [phone] [facility] [id number] [place] [phone] from Last 3 Months or Most Recently Relevant to Health Maintenance Insurance RX OPTUM RX Member Subscriber Plan / Payer (Ef fective for All Dates) Name:Norman Guerrero Relation to Subscriber:Self Name:Norman Guerrero Payer ID:Not on file Type:RX LDI Address: [place] [facility] [employer] Commercial [[id number] RX OPTUM RX Member Subscriber Plan / Payer (Ef fective 2024-Present) Name:Norman Guerrero Neetu Relation to Subscriber:Self Name:Norman Guerrero Subscriber ID:Not on file Payer ID:Not on file Type:Not on file Address: [place] RX RICCI PLANS (INTERNAL) [facility] [employer] Advance Directives For more information, please contact: [phone] * Full Code (Latest Code Status on File) Date Activated Date Inactivated Comments 08/20/2024 3:17 PM 08/21/2024 5:45 PM * Full Code Date Activated Date Inactivated Comments 08/20/2024 9:44 AM 08/20/2024 3:17 PM * Full Code Date Activated Date Inactivated Comments 07/30/2022 8:33 AM 07/30/2022 11:58 AM * Full Code Date Activated Date Inactivated Comments 09/12/2016 7:59 AM 09/12/2016 2:22 PM * Full Code Date Activated Date Inactivated Comments 09/12/2016 7:21 AM 09/12/2016 7:59 AM Care Teams Continuous Mining Machine Company Miner Relationship Specialty Start Date End Date Gómez Kiran Jr., DO [address] [facility] [address] [place] [address] PCP - General Internal Medicine 05/09/20
--- OUTSIDE RECORDS SUMMARY | 2024-08-25 09:51 | XMS_ITS | Encounter Summary ---
Author Organization [facility] Address [address] [place] [address] Care Team Providers Care Artificial Breast Fabricator Name Role Phone Qiana AlexDO Frederick H Primary Care Provider Encounter Details Date Type Department Care Team (Late st Contact Info) Description 09/12/2005 Outpatient Historical [facility] LazambarAmado DO [address] [facility] [address] [place] [address] Er, Authorized P NO ADDRESS ON FILE COMMUNIC DIS CONTACT NEC (Primary Dx) Social History Tobacco Use Types Packs/Day Years Used Date Smoking Tobacco: Never Assessed Comments Unknown Sex and Gender Information Value Date Recorded Sex Assigned at Female 07/09/2024 12:10 PM SECOND FLOOR OPERATOR Legal Sex Female 5:20 AM SECOND FLOOR OPERATOR Gender Identity Female 07/09/2024 12:10 PM SECOND FLOOR OPERATOR Sexual Orientation Choose not to disclose 2023 12:10 PM SECOND FLOOR OPERATOR documented as of this encounter Plan of Treatment Upcoming Encounters Date Type Department Care Team (Late st Contact Info) Description 09/02/2024 1:00 PM SECOND FLOOR OPERATOR Office Visit [facility] Orthopedic Surgery at the [facility] [address] [place] [address] Abhinav Polo MD [address] [place] [address] 09/24/2024 11:05 AM CDT Procedure visit [facility] Urology at the [facility] [address] [place] [address] Otoniel Cates MD [address] [place], [place] [address] 04/06/2025 3:00 PM CDT Office Visit [facility] Primary Care [place] [address] [place] [address] Gómez Kiran Jr., DO [address] [place] [address] documented as of this encounter Visit Diagnoses Diagnosis Contact with or exposure to other communicable diseases(V01.89)- Primary Contact with or exposure to other communicable diseases documented in this encounter Additional Health Concerns Infection Onset Date Last Indicated Resolved Time R/O COVID-19 12/25/2021 12/28/2021 12/28/2021 8:25 PM CDT COVID-19 12/28/2021 12/28/2021 01/27/2022 1:16 AM CDT documented as of this encounter Care Teams Artificial Breast Fabricator Relationship Specialty Start Date End Date Gómez Kiran Jr., DO [address] [place] [address] PCP - General Internal Medicine 05/09/20 documented as of this encounter
--- OUTSIDE RECORDS SUMMARY | 2024-08-25 09:51 | XMS_ITS | Encounter Summary ---
Author Organization [employer] Address [address] [place] [address] Care Team Providers Care Heel Nail Rasper Name Role Phone Qiana AlexDO Frederick H Primary Care Provider Encounter Details Date Type Department Care Team (Late st Contact Info) Description 11/13/2004 Outpatient Historical [facility] Internal Medicine Medical [place] [address] [facility] [address] [place] [address] Wayne Gardiner MD [facility] [address] [place] [address] Social History Tobacco Use Types Packs/Day Years Used Date Smoking Tobacco: Never Assessed Comments Unknown Sex and Gender Information Value Date Recorded Sex Assigned at Female 07/09/2024 12:10 PM METER TESTER Legal Sex Female 5:20 AM METER TESTER Gender Identity Female 07/09/2024 12:10 PM METER TESTER Sexual Orientation Choose not to disclose 2023 12:10 PM METER TESTER documented as of this encounter Last Filed Vital Signs Vital Sign Reading Time Taken Comments Blood Pressure 110/78 11/13/2004 2:00 PM CDT Pulse 70 11/13/2004 2:00 PM CDT Temperature -13.8 C (7.1 F) 11/13/2004 2:00 PM CDT Respiratory Rate - - Oxygen Saturation - - Inhaled Oxygen Concentration - - Weight 91.2 kg (201 lb) 11/13/2004 2:00 PM CDT Height - - Body Mass Index - - documented in this encounter Plan of Treatment Upcoming Encounters Date Type Department Care Team (Late st Contact Info) Description 09/02/2024 1:00 PM METER TESTER Office Visit [facility] Orthopedic Surgery at the [facility] [address] [place] [address] Abhinav Polo MD [address] [place] [address] 09/24/2024 11:05 AM CDT Procedure visit [facility] Urology at the [facility] [address] [place] [address] Otoniel Cates MD [address] [place] [address] 04/06/2025 3:00 PM CDT Office Visit [facility] Primary Care [place] [address] [place] [address] Gómez Kiran Jr., DO [address] [place] [address] documented as of this encounter Visit Diagnoses Not on filedocumented in this encounter Additional Health Concerns Infection Onset Date Last Indicated Resolved Time R/O COVID-19 12/25/2021 12/28/2021 12/28/2021 8:25 PM CDT COVID-19 12/28/2021 12/28/2021 01/27/2022 1:16 AM CDT documented as of this encounter Care Teams Heel Nail Rasper Relationship Specialty Start Date End Date Gómez Kiran Jr., DO [address] [place] [address] PCP - General Internal Medicine 05/09/20 documented as of this encounter
--- OUTSIDE RECORDS SUMMARY | 2024-08-25 09:51 | XMS_ITS | Encounter Summary ---
Author Organization [facility] Address [address] [place] [address] Care Team Providers Care Mobile Sales Assistant Name Role Phone Qiana Alex DO, Frederick H Primary Care Provider Encounter Details Date Type Department Care Team (Latest Contact Info) Description 12/03/2006 Outpatient Historical [facility] Darnell Child MD [address] [place] [address] Chronic Tonsillitis (Primary Dx) Social History Tobacco Use Types Packs/Day Years Used Date Smoking Tobacco: Never Assessed Comments Unknown Sex and Gender Information Value Date Recorded Sex Assigned at Female 07/09/2024 12:10 PM SUPERINTENDENT DRILLING AND PRODUCTION Legal Sex Female 5:20 AM SUPERINTENDENT DRILLING AND PRODUCTION Gender Identity Female 07/09/2024 12:10 PM SUPERINTENDENT DRILLING AND PRODUCTION Sexual Orientation Choose not to disclose 2023 12:10 PM SUPERINTENDENT DRILLING AND PRODUCTION documented as of this encounter Plan of Treatment Upcoming Encounters Date Type Department Care Team (Late st Contact Info) Description 09/02/2024 1:00 PM SUPERINTENDENT DRILLING AND PRODUCTION Office Visit [facility] Orthopedic Surgery at the [facility] [address] [place] [address] Abhinav Polo MD [address] [facility] [address] [place] [address] 09/24/2024 11:05 AM CDT Procedure visit [facility] Urology at the [facility] Medicine [address] [place] [address] Otoniel Cates MD [address] [place] [address] 04/06/2025 3:00 PM CDT Office Visit [facility] Primary Care [place] [address] [place] [address] Gómez Kiran Jr., DO [address] [place] [address] documented as of this encounter Procedures Procedure Name Priority Date/Time Associated Diagnosis Comments POC , URINE Routine 12/03/2006 5:15 AM CDT HEMOGLOBIN AND HEMATOCRIT Routine 11/29/2006 1:46 PM CDT documented in this encounter Results * POC , URINE (12/03/2006 5:15 AM CDT) , URINE POC Negative Negative INTERFACE SYSTEM 12/03/2006 5:15 AM CDT us Darnell Child MD POINT OF CARE TESTING Edited Performing Organization Address [facility] de Phone Number INTERFACE SYSTEM Refer to clinic/hospital department * HEMOGLOBIN AND HEMATOCRIT (11/29/2006 1:46 PM CDT) HEMOGLOBIN 13.8 11.8 - 14.8 g/dL INTERFACE SYSTEM HEMATOCRIT 40.9 35.5 - 44.0 % INTERFACE SYSTEM 11/29/2006 1:46 PM CDT us Darnell Child MD HEMATOLOGY ORDERABLES Edited Performing Organization Address [facility] Co de Phone Number INTERFACE SYSTEM Refer to clinic/hospital department documented in this encounter Visit Diagnoses Diagnosis Chronic tonsillitis- Primary documented in this encounter Additional Health Concerns Infection Onset Date Last Indicated Resolved Time R/O COVID-19 12/25/2021 12/28/2021 12/28/2021 8:25 PM CDT COVID-12/28/2021 12/28/2021 01/27/2022 1:16 AM CDT documented as of this encounter Care Teams Mobile Sales Assistant Relationship Specialty Start Date End Date Gómez Kiran Jr., DO [address] [facility] [address] [place] [address] PCP - General Internal Medicine 05/09/20 documented as of this encounter
--- OUTSIDE RECORDS SUMMARY | 2024-08-25 09:51 | XMS_ITS | Encounter Summary ---
Author Organization [facility] Address [address] [place] [address] Care Team Providers Care Grips Name Role Phone Qiana AlexDO Frederick H Primary Care Provider Encounter Details Date Type Department Care Team (Late st Contact Info) Description 07/22/2024 Chart Note [facility] Orthopedic Surgery at the [facility] Medicine [address] [place] [address] Abhinav Polo MD [address] [facility] [address] [place] [address] Social History Tobacco Use Types Packs/Day Years Used Date Smoking Tobacco: Former Cigarettes Passive Smoke Exposure: Never Smokeless Tobacco: Never Alcohol Use Standard Drinks/Week Comments Yes 2.5 (1 standard drink = 0.6 oz p ure alcohol) weekends Feeling Safe Answer Date Recorded Are you in a relationship wi th someone who hurts you emotionally and/or physically? No 03/10/2024 Food Insecurity Answer Date Recorded Social/Environmental Concerns No concerns Transportation Needs Answer Date Record ed Social/Environmental Concerns No concerns Housing Stability Answer Date Recorded Social/Environmental Concerns No concerns Utility Needs Answer Date Recorded Social/Environmental Concerns No concerns Comments No Sex and Gender Information Value Date Recorded Sex Assigned at Female 07/09/2024 12:10 PM LIFE CONSULTANT Legal Sex Female 5:20 AM LIFE CONSULTANT Gender Identity Female 07/09/2024 12:10 PM LIFE CONSULTANT Sexual Orientation Choose not to disclose 2023 12:10 PM LIFE CONSULTANT Occupation Industry Job Start Date Job End Date Not on file Not on file Not on file Not on file documented as of this encounter Progress Notes * Yessy Wagner - 07/22/2024 3:30 PM CST Surgery Location & Pending Date: [facility] 08.20.2024 Medical Clearance Sent: not requested per surgeon Cardiac Clearance Sent: not requested per surgeon Pre op labs, EKG, xray: previously cleared by pace before we switch procedures PACE appt made: N/A CPT: 66338 Surgery Packet Given: handed Comments: CONSULTANT documented in this encounter Plan of Treatment Upcoming Encounters Date Type Department Care Team (Late st Contact Info) Description 09/02/2024 1:00 PM LIFE CONSULTANT Office Visit [facility] Orthopedic Surgery at the [facility] Medicine [address] [place] [address] Abhinav Polo MD [address] [place] [address] 09/24/2024 11:05 AM CDT Procedure visit [facility] Urology at the [facility] [address] [place] [address] Otoniel Cates MD [address] [place] [address] 04/06/2025 3:00 PM CDT Office Visit [facility] Primary Care [place] [address] [place] [address] Gómez Kiran Jr., DO [address] [place] [address] documented as of this encounter Visit Diagnoses Not on filedocumented in this encounter Care Teams Grips Relationship Specialty Start Date End Date Qiana Alex, Gómez Butler DO [address] [facility] [address] [place] [address] PCP - General Internal Medicine 05/09/20 documented as of this encounter
--- OUTSIDE RECORDS SUMMARY | 2024-08-25 09:51 | XMS_ITS | Encounter Summary ---
Author Organization [facility] Address [address] [place] [address] Care Team Providers Care River Boat Captain Name Role Phone Qiana Alex DO, Frederick H Primary Care Provider Encounter Details Date Type Department Care Team (Latest Contact Info) Description 07/21/2008 Outpatient Historical [facility] Tino Goldsmith MD [address] [place] [address] Other Screening Mammogram Social History Tobacco Use Types Packs/Day Years Used Date Smoking Tobacco: Never Assessed Comments Unknown Sex and Gender Information Value Date Recorded Sex Assigned at Female 07/09/2024 12:10 PM DISTRESSER Legal Sex Female 5:20 AM DISTRESSER Gender Identity Female 07/09/2024 12:10 PM DISTRESSER Sexual Orientation Choose not to disclose 2023 12:10 PM DISTRESSER documented as of this encounter Plan of Treatment Upcoming Encounters Date Type Department Care Team (Late st Contact Info) Description 09/02/2024 1:00 PM DISTRESSER Office Visit [facility] Orthopedic Surgery at the [facility] Medicine [address] [place] [address] Abhinav Polo MD [address] [place] [address] 09/24/2024 11:05 AM CDT Procedure visit [facility] Urology at the [facility] [address] [place] [address] Otoniel Cates MD [address] [place] [address] 04/06/2025 3:00 PM CDT Office Visit [facility] Primary Care [place] [address] [place] [address] Gómez Kiran Jr., DO [address] [place] [address] documented as of this encounter Procedures Procedure Name Priority Date/Time Associated Diagnosis Comments MAMMO SCREEN BILAT W OR WO CAD Routine 07/21/2008 1:50 PM DISTRESSER documented in this encounter Results * MAMMO DIGITAL SCREEN BILAT (07/21/2008 1:50 PM DISTRESSER) Anatomical Region Laterality Modality Breast Bilateral Other 07/21/2008 1:50 PM DISTRESSER Narrative 07/21/2008 10:18 PM DISTRESSER [facility] [address] [place], [place] [address] Admit Date: 07/21/2008 NORMAN [place]ALVIN Sex: F Admit Prov: TINO LITTLE Date: 1965 Primary Care Prov: SARAHY CRISTELA G CMRN: [id number] Room: [facility] SSN: [id number] IMAGING SERVICES Ordering Prov: TINO LITTLE Accession Number: [id number] Interpretation BILATERAL FULL FIELD DIGITAL SCREENING MAMMOGRAM WITH CAD. History: Routine Screening. Technique: Full field digital craniocaudal and mediolateral oblique projections of both breasts were obtained. Computer aided diagnosis was performed. Comparison: 09/2006, 08/2006 Breast Parenchymal Composition: Heterogeneously dense, which lowers the sensitivity of mammography. Findings: No suspicious mass, suspicious microcalcifications, or architectural distortion in either breast is identified. Since the prior study, there has been no significant interval change. The computer aided diagnosis detects no significant abnormality. Overall Assessment: BI-RADS category 1: Negative. Recommendation: Annual mammography is recommended. Assessment BIRADS: 1-Negative Recommendation: Normal interval follow-up Dictated by: SELIN CHI Electronically signed by: SELIN CHI 07/21/2008 22:17 Transcribed: 07/21/2008 22:08 AMK Procedure Note Selin Chi - 07/21/2008 [facility] [address] [place], [place] [address] Admit Date: 07/21/2008 [place]ALVIN Sex: F Admit Prov: TINO LITTLE Date: 1965 Primary Care Prov: CRISTELA WEATHERS CMRN: [id number] Room: NENA SSN: [id number] IMAGING SERVICES Ordering Prov: TINO LITTLE Interpretation BILATERAL FULL FIELD DIGITAL SCREENING MAMMOGRAM WITH CAD. History: Routine Screening. Technique: Full field digital craniocaudal and mediolateral oblique projections of both breasts were obtained. Computer aided diagnosiswas performed. Comparison: 09/2006, 08/2006 Breast Parenchymal Composition: Heterogeneously dense, which lowersthe sensitivity of mammography. Findings: No suspicious mass, suspicious microcalcifications, or architectural distortion in either breast is identified. Since theprior study, there has been no significant interval change. The computeraided diagnosis detects no significant abnormality. Overall Assessment: BI-RADS category 1: Negative. Recommendation: Annual mammography is recommended. Assessment BIRADS: 1-Negative Recommendation: Normal interval follow-up Dictated by: SELIN CHI Electronically signed by: SELIN CHI 07/21/2008 22:17 Transcribed: 07/21/2008 22:08 AMK Tino Little MD MAMMO ORDERABLES Final Result documented in this encounter Visit Diagnoses Diagnosis Other screening mammogram documented in this encounter Additional Health Concerns Infection Onset Date Last Indicated Resolved Time R/O COVID-19 12/25/2021 12/28/2021 12/28/2021 8:25 PM CDT COVID-19 12/28/2021 12/28/2021 01/27/2022 1:16 AM CDT documented as of this encounter Care Teams River Boat Captain Relationship Specialty Start Date End Date Gómez Kiran Jr., DO [address] [facility] [address] [place] [address] PCP - General Internal Medicine 05/09/20 documented as of this encounter
--- OUTSIDE RECORDS SUMMARY | 2024-08-25 09:51 | XMS_ITS | Encounter Summary ---
Author Organization [facility] Address [address] [place] [address] Care Team Providers Care Yard Truck Driver Name Role Phone Qiana LeivaMelissaDO Frederick H Primary Care Provider Encounter Details Date Type Department Care Team (Late st Contact Info) Description 09/24/2007 Outpatient Historical [facility] Er, Authorized P NO ADDRESS ON FILE Rudolph Narayanan MD [address] [facility] [place] [address] Social History Tobacco Use Types Packs/Day Years Used Date Smoking Tobacco: Never Assessed Comments Unknown Sex and Gender Information Value Date Recorded Sex Assigned at Female 07/09/2024 12:10 PM TANK SYSTEMS MAINTAINER Legal Sex Female 5:20 AM TANK SYSTEMS MAINTAINER Gender Identity Female 07/09/2024 12:10 PM TANK SYSTEMS MAINTAINER Sexual Orientation Choose not to disclose 2023 12:10 PM TANK SYSTEMS MAINTAINER documented as of this encounter Plan of Treatment Upcoming Encounters Date Type Department Care Team (Late st Contact Info) Description 09/02/2024 1:00 PM TANK SYSTEMS MAINTAINER Office Visit [facility] Orthopedic Surgery at the [facility] [address] [place] [address] Abhinav Polo MD [address] [facility] [address] [place] [address] 09/24/2024 11:05 AM CDT Procedure visit [facility] Urology at the [facility] [address] [place] [address] Otoniel Cates MD [address] [place], [place] [address] 04/06/2025 3:00 PM CDT Office Visit [facility] Primary Care [place] [address] [place] [address] Gómez Kiran Jr., DO [address] [place] [address] documented as of this encounter Visit Diagnoses Not on filedocumented in this encounter Additional Health Concerns Infection Onset Date Last Indicated Resolved Time R/O COVID-19 12/25/2021 12/28/2021 12/28/2021 8:25 PM CDT COVID-19 12/28/2021 12/28/2021 01/27/2022 1:16 AM CDT documented as of this encounter Care Teams Yard Truck Driver Relationship Specialty Start Date End Date Gómez Kiran Jr., DO [address] [place] [address] PCP - General Internal Medicine 05/09/20 documented as of this encounter
[2024-08-25 09:55] LABS: BEDSIDEPREGUCG Negative (Negative)
[2024-08-25 10:01] LABS: Add Urine Microscopic? NO; Appearance Urine Clear (Clear); Bilirubin Urine Negative (Negative); Blood Urine Negative (Negative); Color Urine Yellow (Yellow); Glucose Urine UA Negative (Negative); Ketones Urine 3+ mg/dL (Negative); Leukocyte Esterase Ur Negative LEU/UL (Negative); Nitrate Urine Negative (Negative); Protein Urine Negative (Negative); Specific Grav Ur 1.013 (1.001-1.035); pH Urine 6.5 (5.0-9.0)
[2024-08-25 10:12] LABS: Creatine Kinase 326 U/L (30-135)
[2024-08-25 10:36] LABS: Procalcitonin 0.1 ng/mL
[2024-08-25 10:37] LABS: Influenza A QL RT-PCR Negative (Negative); Influenza B QL RT-PCR Negative (Negative); RSV RNA, RT-PCR Negative (Negative); SARS-CoV-2 RNA PCR Negative (Negative)
[2024-08-25] MEDS: ONDANSETRON INJ 4 MG/2 ML VIAL IV PUSH (11:18)
[2024-08-25] MEDS: MORPHINE SULFATE (*CRX) 4 MG/ML INJ IV PUSH (11:18)
[2024-08-25 11:45] LABS: NT Pro B Type Natriuretic Pept 88 pg/mL (19.9-100)
[2024-08-25 12:31] LABS: Erythrocyte Sedimentation Rate 49 mm/hr (0-20)
[2024-08-25 12:32] LABS: Reflex Lactic Acid Yes or No Add Lactic
[2024-08-25 13:30] LABS: Lactic Acid 0.9 mmol/L (0.7-2.0)
[2024-08-25] MEDS: SODIUM CHLORIDE 0.9% IV 1,000 ML 100 ML IV CONT (14:13)
== END 2024-08-25 16:33 | disposition short-term general hospital (02) ==
PROVIDERS: Emergency Provider Physician Assistant
DX: R41.82 Altered mental status, unspecified (principal); G93.40 Encephalopathy, unspecified; R33.9 Retention of urine, unspecified; E86.0 Dehydration; M25.461 Effusion, right knee; Z96.651 Presence of right artificial knee joint; R00.0 Tachycardia, unspecified; R74.8 Abnormal levels of other serum enzymes; Z20.822 Contact with and (suspected) exposure to COVID-19
CPT/HCPCS: 36415; 70450; 71046; 71260; 73564; 74177; 76705; 80053; 81003; 81025; 82550; 83605; 83880; 84145; 85025; 85610; 85652; 85730; 86140; 87040; 87637; 93005; 96361; 96374; 96375; 99285; A9270; J2060; J2270; J2405; J7030; Q9967